=== PATIENT | female | born 1930 | race Caucasian/White ===

== ENCOUNTER → 2017-02-14 | Outpatient (CLI) | payer MEDICARE, BC ==
--- NOTE | 2017-02-14 16:45 | NM ---
EXAMINATION TYPE: NM bone scan whole body DATE OF EXAM: 02/14/2017 2:50 PM COMPARISON: NONE HISTORY: Breast cancer Delayed whole-body scanning was performed following the injection of 27.3 mCi Tc 99m MDP. Images wer e acquired 3.5 hours post injection. FINDINGS: Spot imaging is performed over the thorax and lower abdomen. No suspicious uptake is evident. Whole b kathy imaging is performed. No suspicious focal uptake to suggest metastasis. Some degenerative change may be in the bilateral feet IMPRESSION: 1. No suspicious uptake to suggest metastasis. 2. Degenerative changes bilateral feet tarsal regions
--- NOTE | 2017-02-14 17:43 | CT ---
EXAMINATION TYPE: CT ChestAbdPelvis wo con DATE OF EXAM: 02/14/2017 1:22 PM INDICATION: Patient has no complaints at time of study. Follow up study for known breast CA. COMPARISON: NONE CT DLP: 1286 mGycm CONTRAST: No IV contrast. Performed with Oral Contrast. TECHNIQUE: Axial images at 5 mm thick sections. Reconstructed images in the coronal plane. Delayed images through the kidneys. FINDINGS: CT CHEST: Portion of the thyroid visualized is normal. Bilateral breast prostheses are present. Coronary artery calcification is present. Bilateral apical thickening is present. This is stable from comparison. Small bilateral pleural effus ions are present. These may be minimally greater than prior study. No enlarged mediastinal or hilar adenopathy is evident. There is a 1.0 cm pretracheal lymph node mini bairon smaller than comparison. The ascending aorta diameter at the level of the main pulmonary artery is 3.3 cm. The main pulmonary artery diameter at the bifurcation is 2.[address] ABDOMEN: Ascites is present. Liver: Normal Spleen: Calcified granuloma within the spleen. Pancreas: Slightly atrophic. Adrenal glands: There is mild thickening of the left adrenal gland measuring 1.3 cm. This may be a ch yobany. Monitoring is recommended. The right adrenal gland appears normal. Gallbladder: Surgically absent Kidneys: No masses are evident. Some mild left hydronephrosis may be present. Hydroureter is not evid ent. No cysts are present. Aorta: Vascular calcification is within the aorta. Inferior vena cava: Normal. CT PELVIS: Small bowel loops are somewhat prominent with oral contrast. The contrast extends into the descending colon without obstruction. Diverticular changes are within the sigmoid colon. There are loops of bow el which are incompletely distended or lack oral contrast limiting their evaluation. Appendix: Normal as visualized. Urinary bladder: Normal. Genitourinary structures: Uterus appears normal. Adnexal regions are unremarkable. Osseous structures: There is extensive sclerosis throughout the osseous structures including the pelv is the vertebral spine right scapula. Scattered ribs. Sternum. Bilateral humeri Compatible with multi ple metastatic lesions. IMPRESSIONS: 1. Multiple osseous metastasis. 2. Small bilateral pleural effusions. 3. Ascites. 4. Mild prominence of the adrenal gland which may be a change from 08/31/2016. Monitoring is recommend ed. 5. Mild right hydronephrosis, similar appearance to 08/31/2016
== END | disposition home or self-care (01) ==
LOC: RADNMMAIN 10:25
PROVIDERS: ATTEND Internal Medicine Hematology & Oncology
DX: C50.919 Malignant neoplasm of unspecified site of unspecified female breast (principal); C79.51 Secondary malignant neoplasm of bone; Z88.5 Allergy status to narcotic agent; M19.072 Primary osteoarthritis, left ankle and foot; M19.071 Primary osteoarthritis, right ankle and foot; R18.8 Other ascites; J90 Pleural effusion, not elsewhere classified; N13.30 Unspecified hydronephrosis
CPT/HCPCS: 82565; 84520; 71250; 74176; 36415; 78306; A9503

== ENCOUNTER → 2017-03-04 | Outpatient (CLI) | payer MEDICARE, BC ==
--- NOTE | 2017-03-04 18:03 | XR ---
EXAMINATION TYPE: XR chest 2V DATE OF EXAM: 03/04/2017 COMPARISON: 04/05/2011 HISTORY: Difficulty breathing TECHNIQUE: Frontal and lateral views of the chest are obtained. FINDINGS: There is mild pulmonary vascular congestion. There is blunting of costophrenic angles with infiltrates at the lung bases. There is a right axillary pacemaker with the lead tips in the right v entricle. There are sclerotic changes in the thoracic spine. IMPRESSION: Compared to last exam there are new basilar pulmonary infiltrates with mild to moderate pleural effusions. Osteoblastic changes. Mild heart failure is probably present..
== END | disposition home or self-care (01) ==
LOC: RADXRMAIN 17:36
PROVIDERS: ATTEND Family Medicine
DX: J90 Pleural effusion, not elsewhere classified (principal); R91.8 Other nonspecific abnormal finding of lung field
CPT/HCPCS: 71020

== ENCOUNTER 2017-03-11 11:16 | Inpatient (IN) | payer MEDICARE, BC ==
[2017-03-11] MEDS ORDERED: IPRATROPIUM-ALBUTEROL 3 ML NEB INHALATION STA (12:13)
--- NOTE | 2017-03-11 12:17 | ED ---
General Adult HPI - General Chief complaint: Shortness of Breath Stated complaint: Dyspnea Time Seen by Provider: 03/11/17 12:02 Source: patient, RN notes reviewed Mode of arrival: ambulatory Limitations: no limitations - History of Present Illness Initial comments: Patient is a pleasant 86-year-old female presenting to the emergency department complaining of difficulty breathing. Symptoms have been somewhat present over several weeks however worse this past few days. Patient saw her doctor 4 days ago and was diagnosed with pneumonia. Patient feels symptoms are worsening since that time. Dyspnea increases with lying flat. No leg pain or leg swelling. Patient does have cough with clear sputum. No chest pain. No fever. Patient does have a history of bone cancer and is on medication for this. - Related Data Home Medications Medication Instructions Recorded Confirmed Atorvastatin [Lipitor] 20 mg PO HS 03/08/14 03/11/17 Esomeprazole Magnesium [NexIUM] 40 mg PO DAILY@1200 03/08/14 03/11/17 Lisinopril [Zestril] 20 mg PO BID 03/08/14 03/11/17 Metoprolol Tartrate [Lopressor] 100 mg PO BID 03/08/14 03/11/17 Calcium Carbonate [Calcium] 600 mg PO BID 03/11/17 03/11/17 Exemestane [Aromasin] 25 mg PO DAILY@1200 03/11/17 03/11/17 LORazepam [Ativan] 0.5 mg PO DAILY PRN 03/11/17 03/11/17 Levofloxacin [Levaquin] 500 mg PO DAILY 03/11/17 03/11/17 Omeprazole [PriLOSEC] 20 mg PO DAILY PRN 03/11/17 03/11/17 Warfarin [Coumadin] 2.5 mg PO MOTUTHFRSA 03/11/17 03/11/17 Warfarin [Coumadin] 3.25 mg PO SUWE 03/11/17 03/11/17 Xgeva Injection 120 mg SQ Q30D 03/11/17 03/11/17 amLODIPine BESYLATE [Norvasc] 10 mg PO HS 03/11/17 03/11/17 Allergies Allergy/AdvReac Type Severity Reaction Status Date / Time codeine AdvReac Nausea & Verified 03/11/17 11:24 Vomiting Review of Systems ROS Statement: Those systems with pertinent positive or pertinent negative responses have been documented in the HPI. ROS Other: All systems not noted in ROS Statement are negative. Constitutional: Denies: fever, chills Eyes: Denies: eye pain ENT: Denies: ear pain Respiratory: Reports: cough, dyspnea Cardiovascular: Denies: chest pain Endocrine: Reports: fatigue Gastrointestinal: Denies: abdominal pain Genitourinary: Denies: urgency Musculoskeletal: Denies: back pain Skin: Denies: rash Neurological: Denies: weakness Past Medical History Past Medical History: Cancer, GERD/Reflux, Hypertension Additional Past Medical History / Comment(s): bone cancer History of Any Multi-Drug Resistant Organisms: None Reported Past Surgical History: Breast Surgery, Cardiac Ablation, Cholecystectomy, Heart Catheterization, Orthopedic Surgery, Tubal Ligation Additional Past Surgical History / Comment(s): knee surg., bilateral mastectomy Past Anesthesia/Blood Transfusion Reactions: No Reported Reaction Type of Cardiac Device: Permanent Pacemaker Device Placement Date:: unknown Past Psychological History: No Psychological Hx Reported Smoking Status: Former smoker Past Alcohol Use History: None Reported Past Drug Use History: None Reported General Exam Limitations: no limitations General appearance: alert, in no apparent distress Head exam: Present: atraumatic Eye exam: Present: normal appearance, PERRL ENT exam: Present: normal oropharynx Neck exam: Present: normal inspection Respiratory exam: Present: normal lung sounds bilaterally, wheezes (With cough only) Cardiovascular Exam: Present: regular rate, normal rhythm GI/Abdominal exam: Present: soft. Absent: tenderness Extremities exam: Present: normal inspection. Absent: pedal edema, calf tenderness Neurological exam: Present: alert Psychiatric exam: Present: normal affect, normal mood Skin exam: Present: normal color Course Vital Signs 03/11/17 03/11/17 03/11/17 11:20 12:29 12:38 Temperature 97.3 F L Pulse Rate 68 72 76 Respiratory 18 Rate Blood Pressure 140/73 O2 Sat by Pulse 95 Oximetry 03/11/17 03/11/17 12:44 14:02 Temperature Pulse Rate 60 64 Respiratory 18 18 Rate Blood Pressure 109/60 132/63 O2 Sat by Pulse 97 97 Oximetry - Reevaluation(s) Reevaluation #1: 03/11/17 12:21 Patient states she no longer sees Dr. Evangelista. Patient does still see Dr. briceno EKG Findings - EKG Comments: EKG Findings:: Paced rhythm with PVCs. Rate 64. ID 188. QRS 162. QTC 484. QTC 499. Normal axis. Wide complex QRS. Nonspecific ST-T. Medical Decision Making - Medical Decision Making Patient reevaluated and resting comfortably in bed. Patient and family updated on results and plan. Case discussed with Dr. Davis who will consult for Dr. Aparicio and recommends medical admission. Patient no longer sees Dr. Evangelista and therefore Dr. villalpando was paged and he will admit. - Lab Data Result diagrams: 03/11/17 11:41 03/11/17 11:41 Lab Results 03/11/17 03/11/17 03/11/17 Range/Units 11:41 11:41 11:41 WBC 7.2 (3.8-10.6) k/uL RBC 3.79 L (3.80-5.40) m/uL Hgb 12.3 (11.4-16.0) gm/dL Hct 36.4 (34.0-46.0) % MCV 95.9 (80.0-100.0) fL MCH 32.5 (25.0-35.0) pg MCHC 33.9 (31.0-37.0) g/dL RDW 15.0 (11.5-15.5) % Plt Count 149 L (150-450) k/uL Neutrophils % 78 % Lymphocytes % 14 % Monocytes % 5 % Eosinophils % 1 % Basophils % 0 % Neutrophils # 5.6 (1.3-7.7) k/uL Lymphocytes # 1.0 (1.0-4.8) k/uL Monocytes # 0.4 (0-1.0) k/uL Eosinophils # 0.1 (0-0.7) k/uL Basophils # 0.0 (0-0.2) k/uL PT (9.0-12.0) sec INR (<1.1) APTT (22.0-30.0) sec Sodium 138 (137-145) mmol/L Potassium 4.4 (3.5-5.1) mmol/L Chloride 103 (98-107) mmol/L Carbon Dioxide 23 (22-30) mmol/L Anion Gap 12 mmol/L BUN 24 H (7-17) mg/dL Creatinine 1.60 H (0.52-1.04) mg/dL Est GFR (MDRD) Af Amer 37 (>60 ml/min/1.73 sqM) Est GFR (MDRD) Non-Af 31 (>60 ml/min/1.73 sqM) Glucose 100 H (74-99) mg/dL Calcium 9.4 (8.4-10.2) mg/dL Magnesium 2.0 (1.6-2.3) mg/dL Total Bilirubin 0.9 (0.2-1.3) mg/dL AST 53 H (14-36) U/L ALT 60 H (9-52) U/L Alkaline Phosphatase 151 H (38-126) U/L Total Creatine Kinase 41 (30-135) U/L CK-MB (CK-2) 0.6 (0.0-2.4) ng/mL CK-MB (CK-2) Rel Index 1.5 Troponin I 0.013 (0.000-0.034) ng/mL NT-Pro-B Natriuret Pep pg/mL Total Protein 6.6 (6.3-8.2) g/dL Albumin 3.6 (3.5-5.0) g/dL Urine Color Urine Appearance (Clear) Urine pH (5.0-8.0) Ur Specific [place] (1.001-1.035) Urine Protein (Negative) Urine Glucose (UA) (Negative) Urine Ketones (Negative) Urine Blood (Negative) Urine Nitrite (Negative) Urine Bilirubin (Negative) Urine Urobilinogen (<2.0) mg/dL Ur Leukocyte Esterase (Negative) Urine RBC (0-5) /hpf Urine WBC (0-5) /hpf Ur Squamous Epith Cells (0-4) /hpf Urine Mucus (None) /hpf 03/11/17 03/11/17 03/11/17 Range/Units 11:41 11:41 12:34 WBC (3.8-10.6) k/uL RBC (3.80-5.40) m/uL Hgb (11.4-16.0) gm/dL Hct (34.0-46.0) % MCV (80.0-100.0) fL MCH (25.0-35.0) pg MCHC (31.0-37.0) g/dL RDW (11.5-15.5) % Plt Count (150-450) k/uL Neutrophils % % Lymphocytes % % Monocytes % % Eosinophils % % Basophils % % Neutrophils # (1.3-7.7) k/uL Lymphocytes # (1.0-4.8) k/uL Monocytes # (0-1.0) k/uL Eosinophils # (0-0.7) k/uL Basophils # (0-0.2) k/uL PT 44.0 H (9.0-12.0) sec INR 4.5 (<1.1) APTT 31.9 H (22.0-30.0) sec Sodium (137-145) mmol/L Potassium (3.5-5.1) mmol/L Chloride (98-107) mmol/L Carbon Dioxide (22-30) mmol/L Anion Gap mmol/L BUN (7-17) mg/dL Creatinine (0.52-1.04) mg/dL Est GFR (MDRD) Af Amer (>60 ml/min/1.73 sqM) Est GFR (MDRD) Non-Af (>60 ml/min/1.73 sqM) Glucose (74-99) mg/dL Calcium (8.4-10.2) mg/dL Magnesium (1.6-2.3) mg/dL Total Bilirubin (0.2-1.3) mg/dL AST (14-36) U/L ALT (9-52) U/L Alkaline Phosphatase (38-126) U/L Total Creatine Kinase (30-135) U/L CK-MB (CK-2) (0.0-2.4) ng/mL CK-MB (CK-2) Rel Index Troponin I (0.000-0.034) ng/mL NT-Pro-B Natriuret Pep 2840 pg/mL Total Protein (6.3-8.2) g/dL Albumin (3.5-5.0) g/dL Urine Color Yellow Urine Appearance Clear (Clear) Urine pH 6.0 (5.0-8.0) Ur Specific [place] 1.010 (1.001-1.035) Urine Protein Negative (Negative) Urine Glucose (UA) Negative (Negative) Urine Ketones Negative (Negative) Urine Blood Negative (Negative) Urine Nitrite Negative (Negative) Urine Bilirubin Negative (Negative) Urine Urobilinogen <2.0 (<2.0) mg/dL Ur Leukocyte Esterase Small H (Negative) Urine RBC 1 (0-5) /hpf Urine WBC 5 (0-5) /hpf Ur Squamous Epith Cells 1 (0-4) /hpf Urine Mucus Rare H (None) /hpf - Radiology Data Radiology results: image reviewed (Chest x-ray does show bibasilar effusion.) Disposition Clinical Impression: Congestive heart failure Disposition: ADMITTED IP TO THIS HOSP Referrals: None,Stated [Primary Care Provider] - 1-2 days Decision Time: 15:16
[2017-03-11 12:28] LABS: Basophils % (A) 0 %; CH 32.9; CHCM 34.5; Eosinophils # (A) 0.1 k/uL (0-0.7); Eosinophils % (A) 1 %; HCT 36.4 % (34.0-46.0); HDW 2.61; HGB 12.3 gm/dL (11.4-16.0); Luc # (Auto) 0.09; Luc % (Auto) 1; Lymphocytes % (A) 14 %; MCH 32.5 pg (25.0-35.0); MCHC 33.9 g/dL (31.0-37.0); MCV 95.9 fL (80.0-100.0); Mean Platelet Volume 6.7; Monocytes # (A) 0.4 k/uL (0-1.0); Monocytes % (A) 5 %; Neutrophils # (A) 5.6 k/uL (1.3-7.7); Neutrophils % (A) 78 %; RBC 3.79 m/uL (3.80-5.40); WBC 7.2 k/uL (3.8-10.6); WBC (Perox) 7.34
[2017-03-11 12:34] LABS: INR 4.5 (<1.1); Partial Thromboplastin Time 31.9 sec (22.0-30.0)
[2017-03-11 12:38] LABS: Calcium 9.4 mg/dL (8.4-10.2); Total Bilirubin 0.9 mg/dL (0.2-1.3); Total Protein 6.6 g/dL (6.3-8.2)
[2017-03-11 12:40] LABS: Appearance,Urine Clear (Clear); Bilirubin,Urine Negative (Negative); Glucose,Urine (UA) Negative (Negative); Ketones,Urine Negative (Negative); Leukocyte Esterase,Urine Small (Negative); Mucus,Urine Rare /hpf; Nitrite,Urine Negative (Negative); Particle Count 2294; Protein,Urine Negative (Negative); RBC,Urine 1 /hpf (0-5); Squamous Epithelial Cell,Urine 1 /hpf (0-4); UA Billing (MACRO vs. MICRO) MICRO; Urobilinogen,Urine <2.0 mg/dL (<2.0); WBC,Urine 5 /hpf (0-5)
[2017-03-11 12:41] LABS: Potassium 4.4 mmol/L (3.5-5.1)
[2017-03-11 12:57] LABS: Creatine Kinase MB 0.6 ng/mL (0.0-2.4); Troponin I 0.013 ng/mL (0.000-0.034)
--- NOTE | 2017-03-11 13:12 | XR ---
EXAMINATION TYPE: XR chest 2V DATE OF EXAM: 03/11/2017 COMPARISON: 03/04/2017 TECHNIQUE: PA and lateral views submitted. HISTORY: Shortness of breath FINDINGS: Cardiac device is seen with previous surgery. Bilateral infiltrate and pleural effusion. No pneumotho rax. Apical pleural thickening seen. Heterogeneous pattern to the osseous structures could been the basis of diffuse bony metastases. Hype rtrophic change of the spine noted. Correlate for COPD. Arthropathy of the shoulders. IMPRESSION: 1. Persistent small bilateral effusion and infiltrate. Differential diagnosis would include pneumonia or venous congestion. 2. Pleural-based nodularity in the left upper lobe stable. 3. Correlate for bony metastases.
[2017-03-11] MEDS ORDERED: ASPIRIN 325 MG TAB PO STA (15:16)
[2017-03-11] MEDS ORDERED: IPRATROPIUM-ALBUTEROL 3 ML NEB INHALATION PRN (15:19)
[2017-03-11] MEDS ORDERED: FUROSEMIDE 10 MG/ML 4 ML VIAL IV ONE (15:30)
[2017-03-11] MEDS ORDERED: SODIUM CHLORIDE 0.9% 1,000 ML IV SCH (15:30)
[2017-03-11] MEDS ORDERED: NON-FORMULARY DRUG (Omeprazole 20 MG) PO PRN (16:27)
[2017-03-11] MEDS ORDERED: LORazepam 0.5 MG TAB PO PRN (16:27)
[2017-03-11] MEDS: NITROGLYCERIN OINT 1 INCH/GM PACKET TOPICAL SCH ×2 (17:06→21:51)
--- NOTE | 2017-03-11 18:03 | P.CONS ---
History of Present Illness - Reason for Consult Consult date: 03/11/17 Metastatic breast cancer. Progressive shortness of breath - History of Present Illness The patient is an 86-year-old lady, with a prior history of right-sided breast cancer in 1999, as well as left-sided breast cancer in 2002. The patient subsequently developed metastatic disease with widespread bone involvement. She is currently on Aromasin. She had been complaining of shortness of breath since about 3 months. However she did not initially seek attention and she was busy with her ' s health problems. Her unfortunately . The patient's breathing continued to get worse. She denied any chest pain or associated significant cough. She had a CT of the chest abdomen pelvis on 02/14/17 as well as a bone scan. This showed the multiple bone metastasis, which were at baseline. The chest study showed minimal pleural thickening at the apices, and small bilateral pleural effusions with no significant adenopathy or other parenchymal disease. Due to progression of symptoms, the patient had a chest x-ray on 03/04/2017, showing somewhat similar findings with additionally some bilateral parenchymal infiltrates. The patient was placed on antibiotics, without improvement. She therefore came into the emergency room today where chest x-ray appeared to show slight progression in the bilateral parenchymal changes and the pleural effusions. BNP was elevated. She was therefore admitted for further management. Review of Systems Constitutional: Reports weakness Eyes: denies blurred vision, denies pain Ears: deny: decreased hearing, ear discharge, earache, tinnitus Ears, nose, mouth and throat: Denies headache, Denies sore throat Cardiovascular: Reports irregular heart beat, Reports orthopnea, Reports shortness of breath Respiratory: Reports dyspnea Gastrointestinal: Denies abdominal pain, Denies diarrhea, Denies nausea, Denies vomiting Genitourinary: Denies dysuria, Denies hematuria Menstruation: Reports postmenopausal Musculoskeletal: Reports muscle weakness Integumentary: Denies pruritus, Denies rash Neurological: Reports weakness Psychiatric: Denies anxiety, Denies depression Endocrine: Denies fatigue, Denies weight change Hematologic/Lymphatic: Reports as per HPI Past Medical History Past Medical History: Atrial Fibrillation, Cancer, GERD/Reflux, Hyperlipidemia, Hypertension, Osteoarthritis (OA), Pneumonia Additional Past Medical History / Comment(s): bone cancer, SINUS, HEMORRHOIDS, PNE X5, MULTIPLE BASAL CELL SKIN CANCER LESIONS REMOVED."DOUBLE VISION SINCE CATARACT SX", STRESS INCONT OF URINE.past fx lt wrist. History of Any Multi-Drug Resistant Organisms: None Reported Past Surgical History: Breast Surgery, Cardiac Ablation, Cholecystectomy, Heart Catheterization, Orthopedic Surgery, Tubal Ligation Additional Past Surgical History / Comment(s): RT knee arthroscopy., bilateral mastectomy, skin ca removed, d&c, lt wrist sx d/t fx-stated no metal in palce Past Anesthesia/Blood Transfusion Reactions: No Reported Reaction Type of Cardiac Device: Permanent Pacemaker Device Placement Date:: unknown Smoking Status: Former smoker - Past Family History Mother Family Medical History: Diabetes Mellitus, Myocardial Infarction ([place]) Father Family Medical History: AFIB, Cancer, Prostate Disorder Additional Family Medical History / Comment(s): prostate cancer Medications and Allergies Home Medications Medication Instructions Recorded Confirmed Type Atorvastatin [Lipitor] 20 mg PO HS 03/08/14 03/11/17 History Esomeprazole Magnesium [NexIUM] 40 mg PO DAILY@1200 03/08/14 03/11/17 History Lisinopril [Zestril] 20 mg PO BID 03/08/14 03/11/17 History Metoprolol Tartrate [Lopressor] 100 mg PO BID 03/08/14 03/11/17 History Calcium Carbonate [Calcium] 600 mg PO BID 03/11/17 03/11/17 History Exemestane [Aromasin] 25 mg PO DAILY@1200 03/11/17 03/11/17 History LORazepam [Ativan] 0.5 mg PO DAILY PRN 03/11/17 03/11/17 History Levofloxacin [Levaquin] 500 mg PO DAILY 03/11/17 03/11/17 History Omeprazole [PriLOSEC] 20 mg PO DAILY PRN 03/11/17 03/11/17 History Warfarin [Coumadin] 2.5 mg PO MOTUTHFRSA 03/11/17 03/11/17 History Warfarin [Coumadin] 3.25 mg PO SUWE 03/11/17 03/11/17 History Xgeva Injection 120 mg SQ Q30D 03/11/17 03/11/17 History amLODIPine BESYLATE [Norvasc] 10 mg PO HS 03/11/17 03/11/17 History Allergies Allergy/AdvReac Type Severity Reaction Status Date / Time codeine AdvReac Nausea & Verified 03/11/17 11:24 Vomiting Physical Exam Vitals: Vital Signs Temp Pulse Pulse Resp BP BP Pulse Ox 03/11/17 16:08 97 F L 60 20 127/61 98 03/11/17 15:35 96.9 F L 59 L 18 120/64 97 03/11/17 14:02 64 18 132/63 97 03/11/17 12:44 60 18 109/60 97 03/11/17 12:38 76 03/11/17 12:29 72 03/11/17 11:20 97.3 F L 68 18 140/73 95 Intake and Output 03/11/17 03/11/17 03/11/17 06:59 14:59 22:59 Other: Weight 61.235 kg Patient Weight 03/12/17 06:59 Weight 61.235 kg - Constitutional General appearance: no acute distress - EENT Eyes: EOMI, PERRLA ENT: hearing grossly normal, normal oropharynx - Neck Neck: no lymphadenopathy Thyroid: bilateral: normal size - Respiratory Respiratory: bilateral: CTA - Cardiovascular Rhythm: regular Heart sounds: normal: S1, S2 - Gastrointestinal General gastrointestinal: normal bowel sounds, soft - Integumentary Integumentary: normal - Neurologic Neurologic: CNII-XII intact - Musculoskeletal Musculoskeletal: generalized weakness, strength equal bilaterally - Psychiatric Psychiatric: A&O x's 3, appropriate affect Results CBC & Chem 7: 03/11/17 11:41 03/11/17 11:41 Labs: Abnormal Lab Results - Last 24 Hours (Table) 03/11/17 03/11/17 03/11/17 Range/Units 11:41 11:41 11:41 RBC 3.79 L (3.80-5.40) m/uL Plt Count 149 L (150-450) k/uL PT 44.0 H (9.0-12.0) sec APTT 31.9 H (22.0-30.0) sec BUN 24 H (7-17) mg/dL Creatinine 1.60 H (0.52-1.04) mg/dL Glucose 100 H (74-99) mg/dL AST 53 H (14-36) U/L ALT 60 H (9-52) U/L Alkaline Phosphatase 151 H (38-126) U/L Ur Leukocyte Esterase (Negative) Urine Mucus (None) /hpf 03/11/17 Range/Units 12:34 RBC (3.80-5.40) m/uL Plt Count (150-450) k/uL PT (9.0-12.0) sec APTT (22.0-30.0) sec BUN (7-17) mg/dL Creatinine (0.52-1.04) mg/dL Glucose (74-99) mg/dL AST (14-36) U/L ALT (9-52) U/L Alkaline Phosphatase (38-126) U/L Ur Leukocyte Esterase Small H (Negative) Urine Mucus Rare H (None) /hpf Chest x-ray: report reviewed CT scan - abdomen: report reviewed CT scan - chest: report reviewed CT scan - pelvis: report reviewed Assessment and Plan (1) Congestive heart failure Narrative/Plan: At this time is felt to be a primary differential diagnosis of her chest x- ray findings, and progressive shortness of breath. The patient has known atrial fibrillation, but denies any history of coronary artery disease. She does follow with Dr. Reno Davies. She apparently had a recent echocardiogram but is unaware of the results. I'll defer to the admitting service and cardiology for management this regard. Status: Acute (2) Metastatic breast cancer Narrative/Plan: The patient has known breast cancer with widespread bone metastasis. She had restaging studies done on 02/14/2017 including computed tomography scan of the chest abdomen and pelvis, as well as bone scan. As noted in the HPI, these showed no evidence of progression. Therefore progression of the cancer as a cause of her radiologic and symptom abnormalities appears to be much less likely. - Continue Aromasin - Check tumor markers Status: Acute
[2017-03-11 19:46] LABS: Creatine Kinase MB 0.6 ng/mL (0.0-2.4); Troponin I <0.012 ng/mL (0.000-0.034)
[2017-03-11] MEDS: CALCIUM CARBONATE 500 MG CHEWABLE PO SCH (20:11)
[2017-03-11] MEDS: METOPROLOL TARTRATE 50 MG TAB PO SCH (20:11)
[2017-03-11] MEDS: LISINOPRIL 20 MG TAB PO SCH (20:11)
[2017-03-11] MEDS: ATORVASTATIN 20 MG TAB PO SCH (20:11)
[2017-03-11] MEDS ORDERED: amLODIPine 10 MG TAB PO SCH (21:00)
[2017-03-11] MEDS: FUROSEMIDE 10 MG/ML 4 ML VIAL IV SCH (23:02)
[2017-03-12 02:05] LABS: Creatine Kinase MB 0.6 ng/mL (0.0-2.4); Troponin I <0.012 ng/mL (0.000-0.034)
[2017-03-12 06:34] LABS: Prothrombin Time 53.7 sec (9.0-12.0)
[2017-03-12 06:44] LABS: INR 5.4 (<1.1)
[2017-03-12] MEDS ORDERED: PHYTONADIONE ORAL 5 MG/5 ML ORAL.SYRG PO STA (07:16)
[2017-03-12] MEDS ORDERED: ASPIRIN 325 MG TAB PO SCH (09:00)
[2017-03-12] MEDS: NITROGLYCERIN OINT 1 INCH/GM PACKET TOPICAL SCH (09:02)
[2017-03-12] MEDS: METOPROLOL TARTRATE 50 MG TAB PO SCH ×2 (09:02→20:22)
[2017-03-12] MEDS: CALCIUM CARBONATE 500 MG CHEWABLE PO SCH ×2 (09:02→19:47)
[2017-03-12] MEDS: FUROSEMIDE 10 MG/ML 4 ML VIAL IV SCH ×2 (09:03→20:22)
[2017-03-12] MEDS: LISINOPRIL 20 MG TAB PO SCH ×2 (09:03→20:21)
--- NOTE | 2017-03-12 11:30 | P.CRDCN ---
History of Present Illness Consult date: 03/12/17 Reason for Consult (text): CHF Chief complaint: progressively worsening shortness of breath History of present illness: This is a pleasant 86-year-old male patient who follows regularly with Dr. TRISHA Davies in the office. She has a known history of atrial fibrillation, status post failed ablation with subsequent AV node ablation and dual-chamber pacemaker implantation. Also has a history of hypertension, bone cancer and dyslipidemia. Has been complaining of progressively worsening shortness of breath with activity and orthopnea over the last several months. He underwent 2 -D echo with Doppler in the office that showed normal LV size and systolic function with an ejection fraction of 55%, mild aortic regurgitation, moderate mitral regurgitation, large left and moderate right sided pleural effusion as well as laterally increased PASP at 47 mmHg. Report was sent to her primary care physician for further evaluation of pleural effusions. She has also been seen by her oncologist and treated for pneumonia no improvement of symptoms. Chest x-ray on admission showed persistent small bilateral effusion and infiltrate on the differential diagnosis would include pneumonia or venous congestion. A G show dual paced rhythm with occasional PVC. Laboratory values show normal white blood cell count, BUN 24, creatinine 1.6, BNP 2840 and elevated INR at 5.4, elevated liver function tests. She is initiated on Lasix 40 mg IV push every 8 hours as well as Nitropaste. Upon examination, patient is resting comfortably in bed. She can be related to the bathroom without difficulties however became quite dizzy all in the bathroom upon return to her bed his anus improved and systolic blood pressure was at 100 mmHg. she says she is breathing quite a bit better. She had been sleeping in a recliner at home, able to rest comfortably in bed with head up at about 30 currently. She has no complaints of chest discomfort, palpitations, syncope or edema. Past Medical History Past Medical History: Atrial Fibrillation, Cancer, GERD/Reflux, Hyperlipidemia, Hypertension, Osteoarthritis (OA), Pneumonia Additional Past Medical History / Comment(s): bone cancer, SINUS, HEMORRHOIDS, PNE X5, MULTIPLE BASAL CELL SKIN CANCER LESIONS REMOVED."DOUBLE VISION SINCE CATARACT SX", STRESS INCONT OF URINE.past fx lt wrist. History of Any Multi-Drug Resistant Organisms: None Reported Past Surgical History: Breast Surgery, Cardiac Ablation, Cholecystectomy, Heart Catheterization, Orthopedic Surgery, Tubal Ligation Additional Past Surgical History / Comment(s): RT knee arthroscopy., bilateral mastectomy, skin ca removed, d&c, lt wrist sx d/t fx-stated no metal in palce Past Anesthesia/Blood Transfusion Reactions: No Reported Reaction Type of Cardiac Device: Permanent Pacemaker Device Placement Date:: unknown Smoking Status: Former smoker - Past Family History Mother Family Medical History: Diabetes Mellitus, Myocardial Infarction ([place]) Father Family Medical History: AFIB, Cancer, Prostate Disorder Additional Family Medical History / Comment(s): prostate cancer Medications and Allergies Home Medications Medication Instructions Recorded Confirmed Type Atorvastatin [Lipitor] 20 mg PO HS 03/08/14 03/11/17 History Esomeprazole Magnesium [NexIUM] 40 mg PO DAILY@1200 03/08/14 03/11/17 History Lisinopril [Zestril] 20 mg PO BID 03/08/14 03/11/17 History Metoprolol Tartrate [Lopressor] 100 mg PO BID 03/08/14 03/11/17 History Calcium Carbonate [Calcium] 600 mg PO BID 03/11/17 03/11/17 History Exemestane [Aromasin] 25 mg PO DAILY@1200 03/11/17 03/11/17 History LORazepam [Ativan] 0.5 mg PO DAILY PRN 03/11/17 03/11/17 History Levofloxacin [Levaquin] 500 mg PO DAILY 03/11/17 03/11/17 History Omeprazole [PriLOSEC] 20 mg PO DAILY PRN 03/11/17 03/11/17 History Warfarin [Coumadin] 2.5 mg PO MOTUTHFRSA 03/11/17 03/11/17 History Warfarin [Coumadin] 3.25 mg PO SUWE 03/11/17 03/11/17 History Xgeva Injection 120 mg SQ Q30D 03/11/17 03/11/17 History amLODIPine BESYLATE [Norvasc] 10 mg PO HS 03/11/17 03/11/17 History Allergies Allergy/AdvReac Type Severity Reaction Status Date / Time codeine AdvReac Nausea & Verified 03/11/17 11:24 Vomiting Physical Exam Vitals: Vital Signs Temp Pulse Pulse Resp BP BP Pulse Ox 03/12/17 08:00 60 18 128/58 95 03/12/17 04:00 61 18 121/60 91 L 03/12/17 00:00 61 16 115/57 95 03/11/17 20:00 97.6 F 57 L 16 131/63 93 L 03/11/17 16:08 97 F L 60 20 127/61 98 03/11/17 15:35 96.9 F L 59 L 18 120/64 97 03/11/17 14:02 64 18 132/63 97 03/11/17 12:44 60 18 109/60 97 03/11/17 12:38 76 03/11/17 12:29 72 03/11/17 11:20 97.3 F L 68 18 140/73 95 Intake and Output 03/11/17 03/12/17 03/12/17 22:59 06:59 14:59 Intake Total 118 60 120 Output Total 250 Balance -132 60 120 Intake: IV 60 Sodium Chloride 0.9% 1, 60 000 ml @ 20 mls/hr IV . Q24H [facility] Rx#:[id number] Oral 118 120 Output: Urine 250 Other: Voiding Method Bedside Commode Toilet Toilet Bedside Commode Bedside Commode # Voids 1 # Bowel Movements 1 Weight 62.7 kg PHYSICAL EXAMINATION: HEENT: Head is atraumatic, normocephalic. Pupils equal, round. Neck is supple. There is no elevated jugular venous pressure. HEART EXAMINATION: Heart sounds regular, S1 and S2 with a systolic murmur. CHEST EXAMINATION: Lungs are clear to auscultation and precussion. No chest wall tenderness is noted on palpation or with deep breathing. ABDOMEN: Soft, nontender. Bowel sounds are heard. No organomegaly noted. EXTREMITIES: 2+ peripheral pulses with no evidence of peripheral edema and no calf tenderness noted. NEUROLOGIC patient is awake, alert and oriented x3. . Results 03/11/17 11:41 03/11/17 11:41 Cardiac Enzymes 03/11/17 03/11/17 03/11/17 Range/Units 11:41 11:41 18:43 AST 53 H (14-36) U/L CK-MB (CK-2) 0.6 0.6 (0.0-2.4) ng/mL Troponin I 0.013 <0.012 (0.000-0.034) ng/mL 03/12/17 Range/Units 00:53 AST (14-36) U/L CK-MB (CK-2) 0.6 (0.0-2.4) ng/mL Troponin I <0.012 (0.000-0.034) ng/mL Coagulation 03/11/17 03/12/17 Range/Units 11:41 05:45 PT 44.0 H 53.7 H (9.0-12.0) sec APTT 31.9 H (22.0-30.0) sec CBC 03/11/17 Range/Units 11:41 WBC 7.2 (3.8-10.6) k/uL RBC 3.79 L (3.80-5.40) m/uL Hgb 12.3 (11.4-16.0) gm/dL Hct 36.4 (34.0-46.0) % Plt Count 149 L (150-450) k/uL Comprehensive Metabolic Panel 03/11/17 Range/Units 11:41 Sodium 138 (137-145) mmol/L Potassium 4.4 (3.5-5.1) mmol/L Chloride 103 (98-107) mmol/L Carbon Dioxide 23 (22-30) mmol/L BUN 24 H (7-17) mg/dL Creatinine 1.60 H (0.52-1.04) mg/dL Glucose 100 H (74-99) mg/dL Calcium 9.4 (8.4-10.2) mg/dL AST 53 H (14-36) U/L ALT 60 H (9-52) U/L Alkaline Phosphatase 151 H (38-126) U/L Total Protein 6.6 (6.3-8.2) g/dL Albumin 3.6 (3.5-5.0) g/dL Current Medications Generic Name Dose Route Start Last Admin Trade Name Freq PRN Reason Stop Dose Admin Albuterol/Ipratropium 3 ml 03/11/17 15:19 Duoneb 0.5 Mg-3 Mg/3 Ml Soln INHALATION RT-QID PRN Shortness Of Breath Or Wheezing Amlodipine Besylate 10 mg 03/11/17 21:00 03/11/17 20:11 Norvasc PO 10 mg HS [facility] Administration Atorvastatin Calcium 20 mg 03/11/17 21:00 03/11/17 20:11 Lipitor PO 20 mg HS [facility] Administration Calcium Carbonate/Glycine 500 mg 03/11/17 21:00 03/12/17 09:02 Tums PO Not Given BID [facility] Furosemide 40 mg 03/12/17 00:00 03/12/17 09:03 Lasix IV 40 mg Q8HR [facility] Administration Sodium Chloride 1,000 mls @ 20 mls/hr 03/11/17 15:30 03/11/17 15:29 Saline 0.9% IV 20 mls/hr .Q24H [facility] Administration Lisinopril 20 mg 03/11/17 21:00 03/12/17 09:03 Zestril PO 20 mg BID [facility] Administration Lorazepam 0.5 mg 03/11/17 16:27 Ativan PO DAILY PRN Anxiety Metoprolol Tartrate 100 mg 03/11/17 21:00 03/12/17 09:02 Lopressor PO 100 mg BID [facility] Administration Nitroglycerin 1 inch 03/11/17 18:00 03/12/17 09:02 Nitro-Bid Oint TOPICAL 1 inch QID [facility] Administration Non-Formulary Medication 25 mg 03/12/17 12:00 Exemestane [Aromasin] PO DAILY@1200 [facility] Pantoprazole Sodium 40 mg 03/12/17 12:00 Protonix PO DAILY@1200 [facility] Intake and Output 03/11/17 03/12/17 03/12/17 22:59 06:59 14:59 Intake Total 118 60 120 Output Total 250 Balance -132 60 120 Intake: IV 60 Sodium Chloride 0.9% 1, 60 000 ml @ 20 mls/hr IV . Q24H [facility] Rx#:[id number] Oral 118 120 Output: Urine 250 Other: Voiding Method Bedside Commode Toilet Toilet Bedside Commode Bedside Commode # Voids 1 # Bowel Movements 1 Weight 62.7 kg 03/11/17 11:41 03/11/17 11:41 Assessment and Plan Plan: Assessment and plan #1 symptoms of progressively worsening shortness of breath and orthopnea, BNP 2840 #2 acute on chronic diastolic heart failure, ejection fraction 55% #3 paroxysmal atrial fibrillation, status post AV node ablation and dual- chamber pacemaker implantation, supratherapeuatic INR #4 moderate mitral regurgitation #5 pulmonary hypertension #6 Breast CA with bone mets #7 hypertension with orthostatic hypotension #8 hyperlipidemia From core stacker perspective, we will stop Nitropaste and aspirin. Continue to hold Coumadin and monitor INR. Decrease lasix to 40mg IVP Q12H and monitor renal function. Decrease amlodipine. Further recommendations to follow. OSTOMY CARE NURSE note has been reviewed, I agree with a documented findings and plan of care. Patient was seen and examined.
--- NOTE | 2017-03-12 11:38 | P.PN ---
Progress Note - Text This is an addendum to the dictated cardiology consultation. The patient has a known history of atrial fibrillation, status post ablation and AV shaka ablation with permanent pacemaker implantation who presented was 4 weeks of progressive fatigue, shortness of breath lack of energy. She has been under a lot of stress because of the illness of her who . She did not note any significant peripheral edema but she has a cough, no chest discomfort. She felt dizzy today when she got up. She had an echocardiogram done recently that showed a normal systolic function with evidence of pleural effusion that was documented on her chest x-ray. On her physical examination she has mild decrease in the breath sounds at the bases, no JVD and no peripheral edema. The patient presents with progressive dyspnea on exertion with an element of CHF , but I am concerned about the etiology of her pleural effusion. We will continue intravenous diuresis for another 24 hours. We'll follow her renal function closely and depending on her progress further recommendations to be made. Thank you for this consult we will follow with you.
[2017-03-12] MEDS ORDERED: EXEMESTANE 25 MG PO SCH (12:00)
[2017-03-12 12:27] VITALS: BMI 22.3
[2017-03-12] MEDS: PANTOPRAZOLE 40 MG TABLET PO SCH (15:56)
--- NOTE | 2017-03-12 19:36 | HP ---
DATE OF ADMISSION: 03/11/2017 PRESENTING COMPLAINT: Short of breath. HISTORY OF PRESENTING COMPLAINT: This is a very pleasant 86-year-old patient who was following with Dr. Fei Evangelista, wishes to change to family doctor, now being followed by Dr. Thorne. History of bilateral breast cancer with bony metastasis. Chronic stable medical conditions include atrial fibrillation, GERD, hyperlipidemia, hypertension, osteoarthritis, hemorrhoids. The patient over 3 months is getting progressively increasing shortness of breath, has a cough, mucousy sputum. No fever. Decreased appetite, tired and rundown, now admitted for the same. Denies any chest pain. REVIEW OF SYSTEMS: CONSTITUTIONAL: Weak, tired. HEENT: None. RESPIRATORY: As above. CARDIOVASCULAR: As above. GASTROINTESTINAL: GERD. GENITOURINARY: None. MUSCULOSKELETAL: Aches and pains in different joints. DERMATOLOGICAL: None. HEMATOLOGIC: None. LYMPHATICS: None. PSYCHIATRY: None. NEUROLOGICAL: None. PAST HISTORY: Atrial fibrillation, GERD, hyperlipidemia, hypertension, osteoarthritis, hemorrhoids, basal cell carcinoma, urinary stress incontinence, bilateral breast cancer with metastasis to the bone. PAST SURGICAL HISTORY: Breast surgery, cardiac ablation, cholecystectomy, cardiac catheterization, ( ), bilateral mastectomies, skin cancer removed, permanent pacemaker. SOCIAL HISTORY: Patient lost her 2 weeks ago. Patient smoked a pack a day for 34 years; stopped in 1983. FAMILY HISTORY: Diabetes, myocardial infarction, prostate cancer. HOME MEDICATIONS: 1. Aromasin 25 mg p.o. daily. 2. Coumadin 3.25 on Tuesday, Tuesday and 2.5 mg on Tuesday, Tuesday, , Tuesday, Tuesday. 3. Norvasc 10 mg q.h.s. 4. Xgeva 120 mg subcu every 30 days. 5. Prilosec 20 mg p.o. daily p.r.n. 6. Lopressor 100 mg p.o. b.i.d. 7. Zestril 20 mg p.o. b.i.d. 8. Levaquin 500 mg p.o. daily. 9. Ativan 0.5 p.o. daily p.r.n. 10. Nexium 40 mg p.o. daily at noon. 11. Calcium 600 mg p.o. b.i.d. 12. Lipitor 20 mg p.o. q.h.s. ALLERGIES: CODEINE: NAUSEA, VOMITING. On examination temperature 97.3, pulse 68, respirations 18, blood pressure 140/73, pulse ox 95% on room air. GENERAL APPEARANCE: Elderly, lying in bed, tired-appearing. EYES: Pupils equal. Conjunctivae normal. HEENT: Oral cavity normal. NECK: JVD possibly raised. Mass not palpable. RESPIRATORY: Effort increased. LUNGS: Diminished breath sounds. CARDIOVASCULAR: First and second sounds normal. No edema. ABDOMEN: Soft, nontender. Liver and spleen not palpable. LYMPHATIC: No lymph node palpable in neck or axillae. PSYCHIATRIC: Alert and oriented x3. Mood and affect normal. NEUROLOGICAL: Pupils equal. Cranial nerves grossly intact. Power and sensation grossly intact. MUSCULOSKELETAL: Evidence of osteoarthritis of multiple joints. INVESTIGATIONS: White count 7.2, hemoglobin 12.3, INR 4.5. Repeat showed 5.4. BUN 24, creatinine 1.6. CA 15-3 antigen 146. Chest x-ray: Small bilateral pleural effusion. Also, ProBNP is 2840. ASSESSMENT: 1. Acute chronic obstructive pulmonary disease exacerbation in an ex-smoker. 2. Possibly acute on chronic congestive heart failure from diastolic dysfunction. 3. History of atrial fibrillation, status post atrioventricular shaka ablation with a permanent pacemaker, implantation. 4. Gastroesophageal reflux disease. 5. Hyperlipidemia. 6. Essential hypertension. 7. Primary osteoarthritis of multiple joints. 8. Chronic urinary stress incontinence. 9. Bilateral breast cancer leading to bone metastasis being followed by Dr. Thorne. PLAN: The patient is put on nebulized bronchodilators, IV Lasix. Cardiology consulted. Home medications are resumed. Care was discussed with the patient. Both Cardiology and Oncology were consulted.
[2017-03-12] MEDS: ATORVASTATIN 20 MG TAB PO SCH (20:22)
[2017-03-12] MEDS: amLODIPine 5 MG TAB PO SCH (20:24)
[2017-03-12] MEDS: IPRATROPIUM-ALBUTEROL 3 ML NEB INHALATION SCH (20:46)
[2017-03-13 06:53] LABS: Prothrombin Time 19.1 sec (9.0-12.0)
[2017-03-13 07:06] LABS: Potassium 3.4 mmol/L (3.5-5.1)
[2017-03-13] MEDS: CALCIUM CARBONATE 500 MG CHEWABLE PO SCH ×2 (08:29→22:34)
[2017-03-13] MEDS: FUROSEMIDE 10 MG/ML 4 ML VIAL IV SCH (08:29)
[2017-03-13] MEDS: METOPROLOL TARTRATE 50 MG TAB PO SCH ×2 (08:29→22:34)
[2017-03-13] MEDS: LISINOPRIL 20 MG TAB PO SCH ×2 (08:29→22:34)
[2017-03-13] MEDS: IPRATROPIUM-ALBUTEROL 3 ML NEB INHALATION SCH ×4 (08:43→19:32)
[2017-03-13] MEDS: PANTOPRAZOLE 40 MG TABLET PO SCH (15:06)
--- NOTE | 2017-03-13 16:54 | P.PN ---
Progress Note - Text DATE OF SERVICE: 03/13/2017 PRESENTING COMPLAINT: Shortness of breath INTERVAL HISTORY: This is an 86-year-old female who presented with COPD exacerbation. Patient sitting in the bed, no distress noted, breathing easier. Tolerating her diet, moving about the room, moved her bowels. Patient has a history of breast cancer , Dr. Davis to follow as her and saw her today. Discussion had with patient about plan of care, she is agreeable. All questions answered. REVIEW OF SYSTEMS: Done for constitutional ,cardiovascular, GI, pulmonary with relevant findings as above. CURRENT MEDICATIONS Norvasc, Lipitor, Lasix, Zestril, Ativan, Lopressor, Protonix, Coumadin. PHYSICAL EXAM VITAL SIGNS: Temperature 97.8, pulse 62 respirations 16 blood pressure 111/59 oxygen saturation 96% on room air GENERAL APPEARANCE:. Lying in bed, not in distress. EYES: Pupils equal. Conjunctiva normal. NECK: JVD not raised. Mass not palpable. RESPIRATORY: Respiratory effort normal. Lungs diminished throughout . CARDIOVASCULAR: First and second sounds normal. No edema. ABDOMEN: Soft. Liver and spleen not palpable. No tenderness. No mass palpable. PSYCHIATRY: Alert and oriented x3. Mood and affect normal. INVESTIGATIONS: INR 2.0, sodium 137, potassium 3.4, BUN 31 and creatinine 193, ASSESSMENT: Acute chronic obstructive pulmonary disease exacerbation in an ex-smoker. Possibly acute on chronic congestive heart failure from diastolic dysfunction. History of atrial fibrillation, status post atrioventricular shaka ablation with permanent pacemaker, implantation. Gastroesophageal reflux disease. Hyperlipidemia. Essential hypertension. Primary osteoarthritis multiple joints. Chronic urinary stress incontinence. Bilateral breast cancer leading to bone metastases followed by Dr. Varma. Coumadin monitoring PLAN: Continue current medication and treatment plan. Discharge planning the next day or 2. We'll follow closely HUMANITIES DEPARTMENT CHAIR statement: Patient was seen and examined by nurse practitioner Leslie Neri and all elements of the case discussed with attending Dr. Haynes
--- NOTE | 2017-03-13 17:32 | PN ---
Mrs. Ponce is an 86-year-old female who presented with symptoms of progressive dyspnea. She is feeling better today. Her breathing is better. She denies any chest pain. She denies any dizziness, palpitation. She denies any nausea. She continues to be at this time on amlodipine 5 mg daily, Lipitor 20 mg daily, Lasix 40 mg IV q.12 hours, lisinopril 20 mg twice a metoprolol tartrate 100 mg twice a day. PHYSICAL EXAMINATION: Blood pressure 111/59 with a heart in the 60s. LUNGS: Mild decrease in breath sounds at the bases. HEART: S1, S2, no S3, with systolic murmur. ABDOMEN: Soft, nontender. EXTREMITIES: No edema. IMPRESSION: 1. Symptoms of progressive dyspnea with a combination of probable chronic obstructive pulmonary disease and diastolic dysfunction heart failure. 2. Status post permanent pacemaker implantation for atrial fibrillation, status post AV shaka ablation. 3. History of breast cancer with bone metastasis. 4. Hyperlipidemia. 5. Hypertension. RECOMMENDATIONS: I will switch her to oral diuretics. Will continue on the Coumadin. Her INR today is 2.0. Her BUN and creatinine are higher than yesterday. Will follow her weight and depending on her progress, further recommendations will be made.
[2017-03-13] MEDS ORDERED: WARFARIN 2.5 MG TAB PO ONE (18:00)
[2017-03-13] MEDS: amLODIPine 5 MG TAB PO SCH (22:33)
[2017-03-13] MEDS: ATORVASTATIN 20 MG TAB PO SCH (22:34)
[2017-03-13] MEDS ORDERED: ACETAMINOPHEN TAB 325 MG TAB PO PRN (23:32)
[2017-03-14 06:37] LABS: INR 1.5 (<1.1); Prothrombin Time 14.9 sec (9.0-12.0)
[2017-03-14 06:48] LABS: Calcium 7.6 mg/dL (8.4-10.2); Potassium 3.3 mmol/L (3.5-5.1)
--- NOTE | 2017-03-14 07:32 | PN ---
DATE OF SERVICE: 03/13/2017 ATTENDING NOTE: This patient was seen and examined by me earlier today. I reviewed the note of my nurse practitioner, Ms. Neri. Reviewed and discussed additional findings as below. This is a patient with COPD exacerbation and CHF exacerbation. Has been switched to oral diuretics. Overall ( ) was much better. Edema has gone down. On examination, blood pressure 111/59, pulse ox 96% on room air. LUNGS: Clear. CARDIOVASCULAR: First and second sounds normal. INVESTIGATIONS: BUN 31, creatinine 1.93. INR is 2. ASSESSMENT: 1. Acute chronic obstructive pulmonary disease exacerbation in an ex-smoker, improved. 2. Acute on chronic congestive heart failure from diastolic dysfunction, improved. 3. 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 PLAN: Will check patient's BMP in the morning. Care was discussed with the patient. Looking and feeling much better.
[2017-03-14] MEDS ORDERED: DOCUSATE 100 MG CAP PO SCH (09:00)
[2017-03-14] MEDS ORDERED: FUROSEMIDE 40 MG TAB PO SCH (09:00)
[2017-03-14] MEDS: IPRATROPIUM-ALBUTEROL 3 ML NEB INHALATION SCH ×2 (09:09→10:42)
[2017-03-14] MEDS: CALCIUM CARBONATE 500 MG CHEWABLE PO SCH (09:39)
[2017-03-14] MEDS: PANTOPRAZOLE 40 MG TABLET PO SCH (09:40)
[2017-03-14] MEDS: LISINOPRIL 20 MG TAB PO SCH (09:40)
[2017-03-14] MEDS: METOPROLOL TARTRATE 50 MG TAB PO SCH (09:41)
[2017-03-14 11:16] VITALS: RESP 18
[2017-03-14] MEDS: POTASSIUM CHLORIDE ER 20 MEQ TAB.ER PO SCH ×3 (11:35→11:40)
[2017-03-14] MEDS ORDERED: ENOXAPARIN 60 MG/0.6 ML SYRINGE SQ STA (12:19)
--- NOTE | 2017-03-14 12:32 | P.PN ---
Subjective Principal diagnosis: Shortness of breath This is an 86-year-old female who follows regularly with Dr. Reno Davies in the office. She has history of hyperlipidemia, hypertension, atrial fibrillation with prior ablation, prior pacemaker implantation, COPD, she presented to the hospital with symptoms of progressive dyspnea, likely secondary to accommodation of COPD and diastolic congestive heart failure. Patient is currently on by mouth Lasix. Doing well overall today. Potassium 3.3, replaced. INR today 1.5, 5 of Coumadin given today. Creatinine 1.8. Objective - Vital Signs Vital signs: Vital Signs Temp 97.6 F 03/14/17 08:00 Pulse 58 L 03/14/17 08:00 Resp 18 03/14/17 08:00 BP 113/60 03/14/17 08:00 Pulse Ox 96 03/14/17 08:00 Intake & Output 03/13/17 03/14/17 03/14/17 18:59 06:59 18:59 Intake Total 720 480 200 Output Total 1100 1200 Balance -380 -720 200 Weight 60.1 kg Intake: Oral 720 480 200 Output: Urine 1100 1200 Other: Voiding Method Bedside Commode Bedside Commode Bedside Commode # Voids 1 0 1 # Bowel Movements 1 - Exam PHYSICAL EXAMINATION: HEENT: Head is atraumatic, normocephalic. Pupils equal, round. Neck is supple. There is no elevated jugular venous pressure. HEART EXAMINATION: Heart S1 and S2 systolic murmur is heard. CHEST EXAMINATION: Lungs are clear with diminished air entry to bilateral bases. ABDOMEN: Soft, nontender. Bowel sounds are heard. No organomegaly noted. EXTREMITIES: 2+ peripheral pulses with no evidence of peripheral edema and no calf tenderness noted. NEUROLOGIC patient is awake, alert and oriented -3. . - Labs CBC & Chem 7: 03/11/17 11:41 03/14/17 06:22 Labs: Abnormal Lab Results - Last 24 Hours (Table) 03/12/17 03/14/17 03/14/17 Range/Units 05:45 06:22 06:22 PT 14.9 H (9.0-12.0) sec Sodium 136 L (137-145) mmol/L Potassium 3.3 L (3.5-5.1) mmol/L BUN 33 H (7-17) mg/dL Creatinine 1.81 H (0.52-1.04) mg/dL Calcium 7.6 L (8.4-10.2) mg/dL CA 27-29 161.2 H (0.0-38.5) U/mL Microbiology - Last 24 Hours (Table) 03/11/17 11:41 Blood Culture - Preliminary Blood No Growth after 48 hours Assessment and Plan (1) Diastolic CHF, acute on chronic Status: Acute (2) COPD exacerbation Status: Acute (3) Chronic a-fib Status: Acute (4) S/P ablation of atrial fibrillation Status: Acute (5) HTN (hypertension) Status: Acute (6) Hyperlipemia Status: Acute (7) Hx of breast cancer Status: Acute Plan: From cardiology's perspective, we will replace the patient's potassium, give 5 mg of Coumadin today, continue current dose of by mouth Lasix. If the patient is discharged home today we will make her a follow-up appointment to see Dr. TRISHA Davies in the office. PT/INR lytes BUN and creatinine on Tuesday. DNP note has been reviewed, I agree with a documented findings and plan of care. Patient was seen and examined.
[2017-03-14 12:40] VITALS: BP 105/54; PULSE 105; TEMP 97
[2017-03-14] MEDS ORDERED: WARFARIN 5 MG TAB PO ONE (18:00)
--- NOTE | 2017-03-18 13:15 | DS ---
DATE OF ADMISSION: 03/11/2017 DATE OF DISCHARGE: 03/14/2017 FINAL DIAGNOSES: 1. Acute chronic obstructive pulmonary disease exacerbation in a ex-smoker. 2. Acute on chronic congestive heart failure exacerbation from diastolic dysfunction. Ejection fraction not known. 3. History atrial fibrillation, status post AV shaka ablation with permanent pacemaker. 4. Gastroesophageal reflux disease. 5. Hyperlipidemia. 6. Essential hypertension. 7. Primary osteoarthritis of multiple joints. 8. Chronic urinary stress incontinence. 9. Bilateral breast cancer related to bone metastatic, followed by Dr. Thorne. 10. Coumadin monitoring. 11. Chronic kidney disease, stage III, likely from hypertensive nephrosclerosis. 12. Coumadin toxicity with no evidence of bleeding. HOSPITAL COURSE: This patient with COPD and CHF exacerbations received diuretics, bronchodilators, steroids. She responded well. Doing better at the time of discharge. Heart rate better controlled. INR was up. Small amount of vitamin K was given, a small dose. CONSULTATIONS: 1. Dr. Rhodes from Cardiology. 2. Dr. Davis from Oncology. DISCHARGE MEDICATIONS: 1. Lipitor 20 mg q.h.s. 2. Nexium 40 mg a day. 3. Zestril 20 mg b.i.d. 4. Lopressor 100 mg b.i.d. 5. Calcium 600 mg p.o. b.i.d. 6. ( ) 25 mg p.o. daily at noon. 7. Ativan 0.5 p.o. daily p.r.n. 8. Xgeva injection 120 mg subcu every 30 days. 9. Lasix 40 mg a day. 10. Potassium 20 mEq a day. 11. Coumadin 2.5 mg daily. 12. Norvasc 5 mg at bedtime. Follow up with Dr. Xiong on 03/21/2017. Follow up with Dr. BR. Davies on 03/16/2017. Follow with Dr. Thorne, keep appointment. INR and BMP in 3 days. Discharge planning more than 35 minutes.
== END 2017-03-14 14:45 | disposition home or self-care (01) | DRG 291 ==
LOC: EC 11:16 → 6SEL 15:18
PROVIDERS: ADMIT Hospitalist; ATTEND Hospitalist
DX: I13.0 Hypertensive heart and chronic kidney disease with heart failure and stage 1 through stage 4 chronic kidney disease, or unspecified chronic kidney disease (principal); I50.33 Acute on chronic diastolic (congestive) heart failure; C79.51 Secondary malignant neoplasm of bone; J44.1 Chronic obstructive pulmonary disease with (acute) exacerbation; I48.0 Paroxysmal atrial fibrillation; I27.2 Other secondary pulmonary hypertension; I48.2 Chronic atrial fibrillation; E78.5 Hyperlipidemia, unspecified; I08.0 Rheumatic disorders of both mitral and aortic valves; I49.3 Ventricular premature depolarization; I95.1 Orthostatic hypotension; K21.9 Gastro-esophageal reflux disease without esophagitis; K64.9 Unspecified hemorrhoids; N18.3 Chronic kidney disease, stage 3 (moderate); N39.3 Stress incontinence (female) (male); R79.1 Abnormal coagulation profile; M15.9 Polyosteoarthritis, unspecified; Z79.811 Long term (current) use of aromatase inhibitors; Z79.899 Other long term (current) drug therapy; Z79.01 Long term (current) use of anticoagulants; Z85.3 Personal history of malignant neoplasm of breast; Z85.828 Personal history of other malignant neoplasm of skin; Z87.891 Personal history of nicotine dependence; Z95.0 Presence of cardiac pacemaker; Z88.5 Allergy status to narcotic agent; Z82.49 Family history of ischemic heart disease and other diseases of the circulatory system
CPT/HCPCS: 36415; 71020; 80048; 80053; 81001; 82550; 82553; 83735; 83880; 84484; 85025; 85610; 85730; 86300; 87040; 93005; 94640; 94760; 96374; 99285

== ENCOUNTER → 2017-03-17 | Outpatient (CLI) | payer MEDICARE, BC ==
[2017-03-17 11:10] LABS: INR 2.5 (<1.1)
[2017-03-17 11:11] LABS: Calcium 8.5 mg/dL (8.4-10.2); Potassium 4.4 mmol/L (3.5-5.1)
[2017-03-17 12:04] LABS: CH 32.1; CHCM 33.1; HCT 35.3 % (34.0-46.0); HDW 2.49; HGB 12.3 gm/dL (11.4-16.0); MCH 34.1 pg (25.0-35.0); MCHC 34.9 g/dL (31.0-37.0); MCV 97.5 fL (80.0-100.0); Mean Platelet Volume 7.5; RBC 3.62 m/uL (3.80-5.40); RDW 15.2 % (11.5-15.5); WBC 5.7 k/uL (3.8-10.6)
--- NOTE | 2017-03-17 12:26 | XR ---
EXAMINATION TYPE: XR chest 2V DATE OF EXAM: 03/17/2017 COMPARISON: 03/11/2017 INDICATION: A. Fib, dyspnea TECHNIQUE: Frontal and lateral views of the chest are obtained. FINDINGS: The heart size is normal. The pulmonary vasculature is normal. The lungs are clear. Small bilateral pleural effusions are present. Axillary surgical clips are pres ent bilaterally. Electronic device overlies left chest. IMPRESSION: 1. Small bilateral pleural effusions.
== END | disposition home or self-care (01) ==
LOC: LABWHC1 10:02
PROVIDERS: ATTEND Internal Medicine Interventional Cardiology
DX: J90 Pleural effusion, not elsewhere classified (principal); I48.91 Unspecified atrial fibrillation; I50.9 Heart failure, unspecified
CPT/HCPCS: 36415; 71020; 80048; 85027; 85610

== ENCOUNTER 2017-04-17 15:38 | Inpatient (IN) | payer MEDICARE, BC ==
[2017-04-17] MEDS ORDERED: ONDANSETRON 4 MG/2 ML VIAL IVP STA (17:14)
[2017-04-17] MEDS ORDERED: SODIUM CHLORIDE 0.9% 1,000 ML IV ONE (17:14)
[2017-04-17] MEDS ORDERED: RX INFO: IV CONTRAST WAS GIVEN 1 EACH MISC MISCELLANE PRN (17:14)
[2017-04-17 17:47] LABS: Anisocytosis Slight; Basophils % (A) 1 %; CH 32.8; CHCM 32.9; Eosinophils # (A) 0.2 k/uL (0-0.7); Eosinophils % (A) 3 %; HCT 35.4 % (34.0-46.0); HDW 2.64; HGB 11.7 gm/dL (11.4-16.0); Luc # (Auto) 0.06; Luc % (Auto) 1; Lymphocytes # (A) 1.1 k/uL (1.0-4.8); Lymphocytes % (A) 15 %; MCH 33.2 pg (25.0-35.0); MCHC 33.1 g/dL (31.0-37.0); MCV 100.4 fL (80.0-100.0); Macrocytosis Slight; Mean Platelet Volume 8.5; Monocytes # (A) 0.4 k/uL (0-1.0); Monocytes % (A) 6 %; Neutrophils # (A) 5.1 k/uL (1.3-7.7); Neutrophils % (A) 75 %; RBC 3.53 m/uL (3.80-5.40); RDW 17.1 % (11.5-15.5); WBC 6.9 k/uL (3.8-10.6); WBC (Perox) 6.89
--- NOTE | 2017-04-17 18:03 | XR ---
EXAMINATION TYPE: XR chest 2V DATE OF EXAM: 04/17/2017 COMPARISON: 03/17/2017 HISTORY: Abdominal pain TECHNIQUE: Frontal and lateral views of the chest are obtained. FINDINGS: There is pulmonary vascular congestion. There is blunting of costophrenic angles. There is a right axillary pacemaker with lead tips in the right ventricle. There is patchy osteosclerosis in the thoracic spine. IMPRESSION: Mild congestive heart failure with pleural effusions. Pulmonary congestion is worse than last exam. There is sclerosis in the bony thorax suspicious for metastatic disease.
[2017-04-17 18:04] LABS: Calcium 8.4 mg/dL (8.4-10.2); Total Bilirubin 1.1 mg/dL (0.2-1.3); Total Protein 6.4 g/dL (6.3-8.2)
[2017-04-17 18:06] LABS: Potassium 5.9 mmol/L (3.5-5.1)
--- NOTE | 2017-04-17 18:15 | ED ---
Abdominal Pain HPI - General Chief Complaint: Abdominal Pain Stated Complaint: Abd pain/bloating, CARLOS Source: patient Mode of arrival: wheelchair Limitations: no limitations - History of Present Illness Initial Comments: 86-year-old female with past medical history of seizure fibrillation, hyperlipidemia, hypertension, osteoarthritis, recurrent pneumonia, GERD/reflux, bone cancer, basal cell skin cancer, cardiac ablation, cholecystectomy, heart catheterization, tubal ligation presenting for evaluation of generalized abdominal pain for the last 3 weeks. States associated diarrhea and constipation during this time as well as back pain, which she states it more chronic in nature. She has tried mag citrate as well as multiple enemas without improvement in symptoms. She states yesterday her symptoms markedly worsened when her abdomen became distended and she had bilious emesis. States a small BM today and decreased flatus although still present. - Related Data Home Medications Medication Instructions Recorded Confirmed Atorvastatin [Lipitor] 20 mg PO HS 03/08/14 04/17/17 Esomeprazole Magnesium [NexIUM] 40 mg PO DAILY@1200 03/08/14 04/17/17 Metoprolol Tartrate [Lopressor] 100 mg PO BID 03/08/14 04/17/17 Calcium Carbonate [Calcium] 600 mg PO BID 03/11/17 04/17/17 LORazepam [Ativan] 0.5 mg PO DAILY PRN 03/11/17 04/17/17 Xgeva Injection 120 mg SQ Q30D 03/11/17 04/17/17 Lisinopril [Zestril] 10 mg PO DAILY 04/17/17 04/17/17 Previous Rx's Medication Instructions Recorded Potassium Chloride ER [K-Dur 20] 20 meq PO DAILY #30 tab 03/14/17 Allergies Allergy/AdvReac Type Severity Reaction Status Date / Time codeine AdvReac Nausea & Verified 04/17/17 17:29 Vomiting Review of Systems ROS Statement: Those systems with pertinent positive or pertinent negative responses have been documented in the HPI. ROS Other: All systems not noted in ROS Statement are negative. Constitutional: Denies: fever, chills Eyes: Denies: eye pain, vision change ENT: Denies: ear pain, throat pain Respiratory: Reports: dyspnea. Denies: cough Cardiovascular: Denies: chest pain, palpitations Endocrine: Denies: fatigue, polydipsia Gastrointestinal: Reports: abdominal pain, nausea, vomiting, diarrhea, constipation. Denies: hematemesis, melena, hematochezia Genitourinary: Denies: urgency, dysuria Musculoskeletal: Reports: back pain. Denies: arthralgia Skin: Denies: rash, lesions Neurological: Denies: headache, weakness Psychiatric: Denies: anxiety, depression Hematological/Lymphatic: Denies: easy bleeding, swollen glands Past Medical History Past Medical History: Atrial Fibrillation, Cancer, GERD/Reflux, Hyperlipidemia, Hypertension, Osteoarthritis (OA), Pneumonia Additional Past Medical History / Comment(s): bone cancer, SINUS, HEMORRHOIDS, PNE X5, MULTIPLE BASAL CELL SKIN CANCER LESIONS REMOVED."DOUBLE VISION SINCE CATARACT SX", STRESS INCONT OF URINE.past fx lt wrist. History of Any Multi-Drug Resistant Organisms: None Reported Past Surgical History: Breast Surgery, Cardiac Ablation, Cholecystectomy, Heart Catheterization, Orthopedic Surgery, Tubal Ligation Additional Past Surgical History / Comment(s): RT knee arthroscopy., bilateral mastectomy, skin ca removed, d&c, lt wrist sx d/t fx-stated no metal in palce Past Anesthesia/Blood Transfusion Reactions: No Reported Reaction Type of Cardiac Device: Permanent Pacemaker Device Placement Date:: unknown Past Psychological History: No Psychological Hx Reported Smoking Status: Former smoker - Past Family History Mother Family Medical History: Diabetes Mellitus, Myocardial Infarction ([place]) Father Family Medical History: AFIB, Cancer, Prostate Disorder Additional Family Medical History / Comment(s): prostate cancer General Exam Limitations: no limitations General appearance: alert, in no apparent distress Head exam: Present: atraumatic, normocephalic, normal inspection Eye exam: Present: normal appearance, PERRL, EOMI. Absent: scleral icterus, conjunctival injection, periorbital swelling ENT exam: Present: normal exam, mucous membranes moist Neck exam: Present: normal inspection. Absent: tenderness, meningismus, lymphadenopathy Respiratory exam: Present: normal lung sounds bilaterally. Absent: respiratory distress, wheezes, rales, rhonchi, stridor Cardiovascular Exam: Present: regular rate, normal rhythm, normal heart sounds. Absent: systolic murmur, diastolic murmur, rubs, gallop, clicks GI/Abdominal exam: Present: soft, distended, tenderness, normal bowel sounds. Absent: guarding, rebound, rigid Rectal exam: Present: deferred Extremities exam: Present: normal inspection, full ROM, normal capillary refill. Absent: tenderness, pedal edema, joint swelling, calf tenderness Back exam: Present: normal inspection Neurological exam: Present: alert, oriented X3, CN II-XII intact Psychiatric exam: Present: normal affect, normal mood Skin exam: Present: warm, dry, intact, normal color. Absent: rash Course Vital Signs 04/17/17 04/17/17 04/17/17 15:51 19:32 20:44 Temperature 97.2 F L 98.4 F 97.3 F L Pulse Rate 64 59 L 60 Respiratory 18 20 19 Rate Blood Pressure 121/63 174/75 191/85 O2 Sat by Pulse 97 95 92 L Oximetry Medical Decision Making - Medical Decision Making 36-year-old female presented for evaluation of abdominal pain and abdominal distention. On physical examination she has a markedly distended abdomen that is only mildly tender to palpation. There are no peritoneal signs of guarding, rigidity, or rebound however there is a slight fluid wave noted. The patient is unaware of any history of liver failure or ascites. The remainder of her physical exam is within normal limits and without significant findings. Concern for bowel obstruction versus liver failure with ascites. We' ll obtain labs, EKG, chest x-ray, CT abdomen and pelvis, and provide IV fluids and Zofran. The patient was offered pain control but refused stating that she had Tylenol before coming to the ED. Labs revealed a mild transaminitis, acute kidney injury, hyponatremia, hyperkalemia although the specimen was slightly hemolyzed, and elevated INR. CT abdomen and pelvis showed large pleural effusions unchanged from previous imaging and massive ascites that is worse than old CTs. Her changes in the liver consistent with cirrhosis however there are no dilated ducts. There is hydronephrosis that worse on the left side compared to the right but this is similar to her old exams. The patient was reevaluated and continued to have only minimal pain and refused an control. She was informed of all results and that she would be admitted for further treatment and evaluation. Dr. Alegria accepted the admission with request for consult with Dr. Ruby (GI) and hem/onc. She also requested tumor marker labs which will be sent in the morning. Admission order placed and bed request submitted. - Lab Data Result diagrams: 04/17/17 17:28 04/17/17 17:28 Lab Results 04/17/17 04/17/17 04/17/17 Range/Units 17:28 17:28 17:28 WBC 6.9 (3.8-10.6) k/uL RBC 3.53 L (3.80-5.40) m/uL Hgb 11.7 (11.4-16.0) gm/dL Hct 35.4 (34.0-46.0) % MCV 100.4 H (80.0-100.0) fL MCH 33.2 (25.0-35.0) pg MCHC 33.1 (31.0-37.0) g/dL RDW 17.1 H (11.5-15.5) % Plt Count 138 L (150-450) k/uL Neutrophils % 75 % Lymphocytes % 15 % Monocytes % 6 % Eosinophils % 3 % Basophils % 1 % Neutrophils # 5.1 (1.3-7.7) k/uL Lymphocytes # 1.1 (1.0-4.8) k/uL Monocytes # 0.4 (0-1.0) k/uL Eosinophils # 0.2 (0-0.7) k/uL Basophils # 0.0 (0-0.2) k/uL Anisocytosis Slight Macrocytosis Slight PT (9.0-12.0) sec INR (<1.2) APTT (22.0-30.0) sec Sodium 135 L (137-145) mmol/L Potassium 5.9 H (3.5-5.1) mmol/L Chloride 107 (98-107) mmol/L Carbon Dioxide 19 L (22-30) mmol/L Anion Gap 9 mmol/L BUN 33 H (7-17) mg/dL Creatinine 1.69 H (0.52-1.04) mg/dL Est GFR (MDRD) Af Amer 35 (>60 ml/min/1.73 sqM) Est GFR (MDRD) Non-Af 29 (>60 ml/min/1.73 sqM) Glucose 99 (74-99) mg/dL Calcium 8.4 (8.4-10.2) mg/dL Total Bilirubin 1.1 (0.2-1.3) mg/dL AST 51 H (14-36) U/L ALT 48 (9-52) U/L Alkaline Phosphatase 184 H (38-126) U/L Troponin I (0.000-0.034) ng/mL NT-Pro-B Natriuret Pep 5180 pg/mL Total Protein 6.4 (6.3-8.2) g/dL Albumin 3.1 L (3.5-5.0) g/dL Lipase 232 (23-300) U/L 04/17/17 04/17/17 Range/Units 17:28 17:28 WBC (3.8-10.6) k/uL RBC (3.80-5.40) m/uL Hgb (11.4-16.0) gm/dL Hct (34.0-46.0) % MCV (80.0-100.0) fL MCH (25.0-35.0) pg MCHC (31.0-37.0) g/dL RDW (11.5-15.5) % Plt Count (150-450) k/uL Neutrophils % % Lymphocytes % % Monocytes % % Eosinophils % % Basophils % % Neutrophils # (1.3-7.7) k/uL Lymphocytes # (1.0-4.8) k/uL Monocytes # (0-1.0) k/uL Eosinophils # (0-0.7) k/uL Basophils # (0-0.2) k/uL Anisocytosis Macrocytosis PT 13.4 H (9.0-12.0) sec INR 1.4 H (<1.2) APTT 26.7 (22.0-30.0) sec Sodium (137-145) mmol/L Potassium (3.5-5.1) mmol/L Chloride (98-107) mmol/L Carbon Dioxide (22-30) mmol/L Anion Gap mmol/L BUN (7-17) mg/dL Creatinine (0.52-1.04) mg/dL Est GFR (MDRD) Af Amer (>60 ml/min/1.73 sqM) Est GFR (MDRD) Non-Af (>60 ml/min/1.73 sqM) Glucose (74-99) mg/dL Calcium (8.4-10.2) mg/dL Total Bilirubin (0.2-1.3) mg/dL AST (14-36) U/L ALT (9-52) U/L Alkaline Phosphatase (38-126) U/L Troponin I 0.031 (0.000-0.034) ng/mL NT-Pro-B Natriuret Pep pg/mL Total Protein (6.3-8.2) g/dL Albumin (3.5-5.0) g/dL Lipase (23-300) U/L 04/18/17 02:00 Electronic ventricular pacemaker with ventricular rate of 61, QRS 160, QT/QTC 500/503. Disposition Clinical Impression: Ascites, Transaminitis, Abdominal pain, Shortness of breath Disposition: ADMITTED IP TO THIS [facility] Decision to Admit Reason: Admit from EC Decision Date: 04/17/17 Decision Time: 20:11
--- NOTE | 2017-04-17 18:40 | CT ---
EXAMINATION TYPE: CT abdomen pelvis wo con DATE OF EXAM: 04/17/2017 COMPARISON: 02/14/2017 HISTORY: Patient complains of generalized abdominal pain and bloating. CT DLP: 318.4 mGycm Automated exposure control for dose reduction was used. TECHNIQUE: Helical acquisition of images was performed from the lung bases through the pelvis. FINDINGS: There are bilateral breast implants. There are large bilateral pleural effusions. There is atelectasi s in both lower lobes. There is massive ascites throughout the abdomen. Liver is small consistent with cirrhosis. Spleen sathya ears normal. There is no evidence of pancreatic mass. Bile ducts are not dilated. There is no adrenal mass. There is mild fullness of the pelvis of both kidneys. Exam is limited by la ck of any contrast. I see no sign of a bowel obstruction. Abdominal aorta is atheromatous. Urinary bl adder is almost empty. Uterus is anteverted. There are extensive osteoblastic changes in the spine co nsistent with metastatic disease. IMPRESSION: LARGE PLEURAL EFFUSIONS ARE UNCHANGED. MASSIVE ASCITES IS WORSE THAN OLD CT SCAN. CHANGES IN THE LIVER CONSISTENT WITH CIRRHOSIS. NO DILATED DUCTS. THERE IS HYDRONEPHROSIS WORSE ON TH E LEFT SIDE SUGGESTIVE OF PARTIAL OBSTRUCTION THAT IS SIMILAR TO OLD EXAM. EXTENSIVE ATHEROSCLEROTIC VASCULAR DISEASE.
[2017-04-17] MEDS ORDERED: NALOXONE 0.4 MG/ML 1 ML VIAL IV PRN (20:05)
[2017-04-17] MEDS ORDERED: ONDANSETRON 4 MG/2 ML VIAL IVP PRN (20:05)
[2017-04-17] MEDS ORDERED: LORazepam 0.5 MG TAB PO PRN (20:10)
[2017-04-17] MEDS ORDERED: XGEVA 120 MG SQ SCH (20:15)
[2017-04-17 20:40] LABS: INR 1.4 (<1.2); Partial Thromboplastin Time 26.7 sec (22.0-30.0); Prothrombin Time 13.4 sec (9.0-12.0)
[2017-04-17 22:12] VITALS: BMI 22.6
[2017-04-17] MEDS ORDERED: hydrALAZINE HCL 20 MG/ML 1 ML VIAL IVP PRN (22:49)
[2017-04-17] MEDS: ATORVASTATIN 20 MG TAB PO SCH (22:50)
[2017-04-17] MEDS: METOPROLOL TARTRATE 50 MG TAB PO SCH (22:51)
[2017-04-17] MEDS: SODIUM CHLORIDE 0.9% 1,000 ML IV SCH (23:13)
[2017-04-18 05:44] LABS: Anisocytosis Slight; Basophils % (A) 1 %; CH 32.5; CHCM 31.7; Eosinophils # (A) 0.2 k/uL (0-0.7); Eosinophils % (A) 4 %; HCT 35.7 % (34.0-46.0); HDW 2.69; HGB 11.3 gm/dL (11.4-16.0); Hypochromasia Slight; Luc # (Auto) 0.04; Luc % (Auto) 1; Lymphocytes # (A) 0.9 k/uL (1.0-4.8); Lymphocytes % (A) 16 %; MCH 32.7 pg (25.0-35.0); MCHC 31.6 g/dL (31.0-37.0); MCV 103.3 fL (80.0-100.0); Macrocytosis Moderate; Mean Platelet Volume 8.3; Monocytes # (A) 0.3 k/uL (0-1.0); Monocytes % (A) 6 %; Neutrophils % (A) 72 %; RBC 3.46 m/uL (3.80-5.40); RDW 17.3 % (11.5-15.5); WBC 5.6 k/uL (3.8-10.6); WBC (Perox) 5.89
[2017-04-18 05:49] LABS: INR 1.4 (<1.2); Prothrombin Time 13.8 sec (9.0-12.0)
[2017-04-18 05:57] LABS: Calcium 8.2 mg/dL (8.4-10.2); Magnesium 2.4 mg/dL (1.6-2.3); Phosphorous 3.6 mg/dL (2.5-4.5); Potassium 5.1 mmol/L (3.5-5.1); Total Bilirubin 0.8 mg/dL (0.2-1.3); Total Protein 5.5 g/dL (6.3-8.2)
[2017-04-18] MEDS: METOPROLOL TARTRATE 50 MG TAB PO SCH ×2 (08:29→22:16)
[2017-04-18] MEDS: SPIRONOLACTONE 25 MG TAB PO SCH (08:32)
[2017-04-18] MEDS: FUROSEMIDE 40 MG TAB PO SCH ×2 (08:32→22:16)
[2017-04-18] MEDS ORDERED: SPIRONOLACTONE 25 MG TAB PO SCH (09:00)
[2017-04-18] MEDS ORDERED: LISINOPRIL 10 MG TAB PO SCH (09:00)
[2017-04-18] MEDS ORDERED: PANTOPRAZOLE 40 MG TABLET PO SCH (12:00)
[2017-04-18] MEDS: LISINOPRIL 5 MG TAB PO SCH (12:31)
[2017-04-18 13:22] LABS: Hepatitis B Surface Ag Index 0.06
[2017-04-18 13:40] LABS: Hepatitis C Virus IgG Ab Negative (Negative); Hepatitis C Virus IgG Index 0.03
--- NOTE | 2017-04-18 14:03 | P.HPIM ---
History of Present Illness H&P Date: 04/18/17 Chief Complaint: Abdominal distention Pleasant 86-year-old lady patient of Dr. Bowie for which he established with the practice 2 weeks ago, has underlying history of breast cancer with metastases to the bone approximately 1-1/2 years ago with bilateral mastectomy right 1999 and left 2002, under the care of Dr. Thorne, Dr. TAMMY Davies for atrial fibrillation, GERD hyperlipidemia osteoarhtritis and a permanent pacemaker for atrial fibrillation. Was seen and currently is on intramuscular shots that was started 2 weeks ago. She was admitted from our facility 03/11/2017 secondary to pleural effusion aortic IV diuresis and was discharged on oral Lasix. At that time CAT scan of the abdomen and pelvis also shows the ascites and metastatic lesions to the bone, patient was not aware off this condition. She now complains of abdominal distention along with constipation, patient did not have relief with any [id number] medication, the ascites continues to bother her requiring now ER evaluation. ct of the abdomen and pelvis were reviewed from [email or web address] showed ascites being present, bilateral Valeria thickening, small bilateral pleural effusion are present, multipl all shoes abnormalities noted, there is right mild hydronephrosis noted, worse on the left side suggestive of partial obstruction, that similar to old exam extensive atherosclerotic vascular disease Review of Systems Constitutional: Reports as per HPI, Reports poor appetite, Reports weakness, Reports weight loss, Denies anorexia, Denies chills, Denies chronic headaches, Denies chronic pain, Denies daytime sleepiness, Denies fatigue, Denies fever, Denies lethargy, Denies malaise, Denies night sweats, Denies sweats, Denies weight gain Ears, nose, mouth and throat: Reports as per HPI Cardiovascular: Reports as per HPI, Reports decreased exercise tolerance Respiratory: Reports as per HPI Gastrointestinal: Reports as per HPI, Reports constipation, Reports indigestion , Reports nausea, Denies abdominal pain, Denies belching, Denies bloating, Denies BRBPR, Denies change in bowel habits, Denies coffee ground emesis, Denies diarrhea, Denies dyspepsia, Denies early satiety, Denies excessive gas, Denies heartburn, Denies hematemesis, Denies hematochezia, Denies jaundice, Denies lactose intolerance, Denies loss of appetite, Denies melena, Denies vomiting Genitourinary: Reports as per HPI, Denies abnormal vaginal bleeding, Denies decreased libido, Denies difficulty conceiving, Denies difficulty voiding, Denies dysmenorrhea, Denies dyspareunia, Denies dysuria, Denies flank pain, Denies genital sores, Denies hematuria, Denies hot flashes, Denies incomplete emptying, Denies kidney stones, Denies menorrhagia, Denies mixed incontinence, Denies nocturia, Denies pelvic pain, Denies post void dribbling, Denies , Denies prolapse symptoms, Denies stress incontinence, Denies urge incontinence , Denies urgency, Denies urinary frequency, Denies vaginal discharge, Denies vaginal dryness, Denies vaginal itching, Denies vaginal odor Menstruation: Reports as per HPI Musculoskeletal: Reports as per HPI, Denies arm numbness/tingling, Denies atrophy, Denies fractures, Denies frequent falls, Denies gait dysfunction, Denies hot joints, Denies leg numbness/tingling, Denies limitation of motion, Denies loss of height, Denies low back pain, Denies morning stiffness, Denies muscle cramps, Denies muscle weakness, Denies myalgias, Denies neck pain, Denies neck stiffness, Denies prior amputations, Denies redness of joints, Denies shooting arm pain, Denies shooting leg pain Integumentary: Reports as per HPI, Denies acne, Denies boils, Denies brittle nails, Denies change in hair/nails, Denies color changes, Denies darkening of skin, Denies depigmentation, Denies dryness, Denies foot/leg ulcers, Denies growths, Denies hirsutism, Denies lesions, Denies onychomycosis, Denies pruritus , Denies rash, Denies sores, Denies striae, Denies unusual bruising, Denies wounds Neurological: Reports as per HPI, Denies aphasia, Denies ataxia, Denies balance difficulties, Denies burning pain, Denies change in mentation, Denies change in smell/taste, Denies change in speech, Denies confusion, Denies convulsions, Denies double vision, Denies gait dysfunction, Denies head injury, Denies headaches, Denies hearing difficulties, Denies lack of coordination, Denies loss of vision, Denies memory loss, Denies migraines, Denies motor disturbance, Denies numbness, Denies paralysis, Denies paresthesias, Denies seizures, Denies sensory deficit, Denies spasticity, Denies syncope, Denies tic, Denies tingling , Denies transient paralysis, Denies tremors, Denies vertigo, Denies weakness, Denies visual changes Psychiatric: Reports as per HPI Endocrine: Reports as per HPI, Denies cold intolerance, Denies deepening of the voice, Denies excessive sweating, Denies excessive thirst, Denies fatigue, Denies flushing, Denies heat intolerance, Denies high blood sugars, Denies increase in ring/shoe/hat size, Denies low blood sugars, Denies nocturia, Denies palpitations, Denies polydipsia, Denies polyphagia, Denies polyuria, Denies proptosis, Denies recent glucocorticoid use, Denies thyroid mass, Denies weight change Hematologic/Lymphatic: Reports as per HPI, Denies easy bleeding, Denies easy bruising, Denies lymphadenopathy, Denies lymphedema, Denies thrombophilia Allergic/Immunologic: Reports as per HPI Past Medical History Past Medical History: Atrial Fibrillation, Cancer, GERD/Reflux, Hyperlipidemia, Hypertension, Osteoarthritis (OA), Pneumonia Additional Past Medical History / Comment(s): bone cancer, SINUS, HEMORRHOIDS, PNE X5, MULTIPLE BASAL CELL SKIN CANCER LESIONS REMOVED."DOUBLE VISION SINCE CATARACT SX", STRESS INCONT OF URINE.past fx lt wrist. History of Any Multi-Drug Resistant Organisms: None Reported Past Surgical History: Breast Surgery, Cardiac Ablation, Cholecystectomy, Heart Catheterization, Orthopedic Surgery, Tubal Ligation Additional Past Surgical History / Comment(s): RT knee arthroscopy., bilateral mastectomy, skin ca removed, d&c, lt wrist sx d/t fx-stated no metal in palce Past Anesthesia/Blood Transfusion Reactions: No Reported Reaction Type of Cardiac Device: Permanent Pacemaker Device Placement Date:: unknown Past Psychological History: No Psychological Hx Reported Smoking Status: Former smoker - Past Family History Mother Family Medical History: Diabetes Mellitus, Myocardial Infarction ([place]) Father Family Medical History: AFIB, Cancer, Prostate Disorder Additional Family Medical History / Comment(s): prostate cancer Medications and Allergies Home Medications Medication Instructions Recorded Confirmed Type Atorvastatin [Lipitor] 20 mg PO HS 03/08/14 04/17/17 History Esomeprazole Magnesium [NexIUM] 40 mg PO DAILY@1200 03/08/14 04/17/17 History Metoprolol Tartrate [Lopressor] 100 mg PO BID 03/08/14 04/17/17 History Calcium Carbonate [Calcium] 600 mg PO BID 03/11/17 04/17/17 History LORazepam [Ativan] 0.5 mg PO DAILY PRN 03/11/17 04/17/17 History Xgeva Injection 120 mg SQ Q30D 03/11/17 04/17/17 History Lisinopril [Zestril] 10 mg PO DAILY 04/17/17 04/17/17 History Allergies Allergy/AdvReac Type Severity Reaction Status Date / Time codeine AdvReac Nausea & Verified 04/17/17 17:29 Vomiting Physical Exam Vitals: Vital Signs Temp Pulse Pulse Resp BP BP Pulse Ox 04/18/17 07:00 98 F 60 16 127/59 91 L 04/18/17 00:20 159/76 04/18/17 00:00 61 04/17/17 23:00 181/78 04/17/17 22:20 179/84 04/17/17 21:05 97.0 F L 61 16 190/79 93 L 04/17/17 20:44 97.3 F L 60 19 191/85 92 L 04/17/17 19:32 98.4 F 59 L 20 174/75 95 04/17/17 15:51 97.2 F L 64 18 121/63 97 Intake and Output 04/17/17 04/18/17 04/18/17 22:59 06:59 14:59 Intake Total 20 200 Balance 20 200 Intake: Intake, IV Titration 20 200 Amount Sodium Chloride 0.9% 1, 20 200 000 ml @ 20 mls/hr IV . Q24H [facility] Rx#:[id number] Other: Voiding Method Toilet Toilet # Voids 1 2 Weight 63.503 kg 63.503 kg Patient Weight 04/19/17 06:59 Weight 63.503 kg - Constitutional General appearance: cooperative, no acute distress, thin - EENT Eyes: EOMI, fundus normal ENT: NA/AT, normal oropharynx - Neck Neck: normal ROM - Respiratory Respiratory: bilateral: CTA, negative: diminished, dullness, rales, rhonchi, wheezing - Cardiovascular Rhythm: regular Heart sounds: normal: S1, S2 Abnormal Heart Sounds: no systolic murmur, no diastolic murmur, no rub, no S3 Gallop, no S4 Gallop, no click, no other - Gastrointestinal General gastrointestinal: distended, normal bowel sounds, soft - Integumentary Integumentary: normal, normal turgor - Neurologic Neurologic: CNII-XII intact - Musculoskeletal Musculoskeletal: gait normal, strength equal bilaterally - Psychiatric Psychiatric: A&O x's 3, appropriate affect Results CBC & Chem 7: 04/18/17 05:24 04/18/17 05:24 Labs: Abnormal Lab Results - Last 24 Hours (Table) 04/17/17 04/17/17 04/17/17 Range/Units 17:28 17:28 17:28 RBC 3.53 L (3.80-5.40) m/uL Hgb (11.4-16.0) gm/dL MCV 100.4 H (80.0-100.0) fL RDW 17.1 H (11.5-15.5) % Plt Count 138 L (150-450) k/uL Lymphocytes # (1.0-4.8) k/uL PT 13.4 H (9.0-12.0) sec INR 1.4 H (<1.2) Sodium 135 L (137-145) mmol/L Potassium 5.9 H (3.5-5.1) mmol/L Chloride (98-107) mmol/L Carbon Dioxide 19 L (22-30) mmol/L BUN 33 H (7-17) mg/dL Creatinine 1.69 H (0.52-1.04) mg/dL Calcium (8.4-10.2) mg/dL Magnesium (1.6-2.3) mg/dL AST 51 H (14-36) U/L Alkaline Phosphatase 184 H (38-126) U/L Total Protein (6.3-8.2) g/dL Albumin 3.1 L (3.5-5.0) g/dL Carcinoembryonic Ag (0.0-5.0) ng/mL CA 125 Antigen (<35.1) U/mL 04/18/17 04/18/17 04/18/17 Range/Units 05:24 05:24 05:24 RBC 3.46 L (3.80-5.40) m/uL Hgb 11.3 L (11.4-16.0) gm/dL MCV 103.3 H (80.0-100.0) fL RDW 17.3 H (11.5-15.5) % Plt Count 113 L (150-450) k/uL Lymphocytes # 0.9 L (1.0-4.8) k/uL PT 13.8 H (9.0-12.0) sec INR 1.4 H (<1.2) Sodium 136 L (137-145) mmol/L Potassium (3.5-5.1) mmol/L Chloride 109 H (98-107) mmol/L Carbon Dioxide 20 L (22-30) mmol/L BUN 31 H (7-17) mg/dL Creatinine 1.60 H (0.52-1.04) mg/dL Calcium 8.2 L (8.4-10.2) mg/dL Magnesium 2.4 H (1.6-2.3) mg/dL AST 38 H (14-36) U/L Alkaline Phosphatase 175 H (38-126) U/L Total Protein 5.5 L (6.3-8.2) g/dL Albumin 2.7 L (3.5-5.0) g/dL Carcinoembryonic Ag 26.6 H (0.0-5.0) ng/mL CA 125 Antigen 1820.0 H (<35.1) U/mL Thrombosis Risk Factor Assmnt - Choose All That Apply Any of the Below Risk Factors Present?: No Other Risk Factors: Yes Each Risk Factor Represents 2 Points: Malignancy Each Risk Factor Represents 3 Points: Age 75 years or older Other congenital or acquired thrombophilia - If yes, enter type in comment: No Thrombosis Risk Factor Assessment Total Risk Factor Score: 5 Thrombosis Risk Factor Assessment Level: High Risk Assessment and Plan Plan: 1 symtpomatic ascites most related to malignancy, she has coexisting breast cancer however with elevated CA 125, and no prior malignancy is also suspected, patient was seen consultation by interventional radiology, Dr. Mckinnon, Dr. White, and Dr. Mckinnon. Patient was started on IV furosemide 40 mg twice a day along with spironolactone, abdominal paracentesis will be obtained to evaluate etiology of ascites, hepatitis B and C are negative 2. Large pleural effusion most likely secondary to malignancy, patient currently is asymptomatic for pulmonary symptoms, patient would be receiving IV diuretics at this time patient might need thoracentesis as well 3. Breast cancer with metastatic to the bone, patient failed to additional aromatase seen, patient had bilateral mastectomy performed follows with Dr. Fadumo darling on Xgeva 4. Atrial fibrillation not on any anticoagulation INR currently is a 20 point for allowing for abdominal paracentesis follows with the tammy Davies, continue on metoprolol, lisinopril Down to 5 mg, dilay to allow diuretic use 5. Bilateral hydronephrosis worse in the left suggestive of partial obstruction , chronic patient need stent placement we would consult urology 6 5liver cirrhosis, no currebnt or preivous etoh use, hepattis panel negative, dr hernandez consulted 6 Hyperlipidemia on Lipitor 7 Atherosclerotic cardiovascular disease asymtpomatic 8 History of permanent pacemaker placement 9 Moderate protein calorie malnutrition 10 CK D stage III avoid diuretics and hypotensionWith bilateral hydronephrosis noted, consult was made with urology 11Cachexia with weight loss related to malignancy patient will start on Remeron , this will be discuseed ith the paitent 12Previous tobacco use 13COPD without any exacerbation CODE STATUS DO NOT RESUSCITATE CODE STATUS DO NOT RESUSCITATE GI prophylaxis and DVT prophylaxis started on Lovenox high risk, to be started after after abdomen paracentesis
[2017-04-18 14:09] LABS: Iron 55 ug/dL (37-170)
[2017-04-18 14:23] LABS: % Iron Saturation 26.6 % (20-50); Total Iron Binding Capacity 207 ug/dL (265-497)
[2017-04-18] MEDS ORDERED: ACETAMINOPHEN TAB 325 MG TAB PO PRN (15:54)
--- NOTE | 2017-04-18 15:56 | US ---
EXAMINATION TYPE: US paracentesis abd w/image DATE OF EXAM: 04/18/2017 COMPARISON: NONE HISTORY: Ascites. PROCEDURE: Maximal barrier technique was utilized. The skin overlying a suitable pocket of fluid was localized with ultrasound and the overlying skin was prepped and draped. Ultrasound was utilized with sterile technique. Lidocaine was used for local anesthesia and a skin marie made with a scalpel. Catheter was advanced under direct ultrasound guidance into a suitable pocket of fluid and approximately 4.5 liter s of serous fluid were removed. Catheter was withdrawn and hemostasis achieved. There is no immedia te complication; the patient is discharged in stable condition. Specimen sent for laboratory analysis . IMPRESSION: STATUS POST ULTRASOUND GUIDED PARACENTESIS FOR PALLIATION OF ASCITES. THIS PROCEDURE WA S PERFORMED BY THE UNDERSIGNED.
[2017-04-18 16:54] LABS: RBC, Body Fluid 0 /uL
--- NOTE | 2017-04-18 17:02 | CONS ---
DATE OF CONSULTATION: 04/18/2017 REASON FOR CONSULTATION: New-onset ascites and abdominal distention. HISTORY OF PRESENT ILLNESS: The patient is an 86-year-old pleasant white female , admitted to the hospital because of progressive abdominal distention for the last 3 weeks' duration. She also noted alternative diarrhea and constipation for the same duration of time. She denies any abdominal pain. No nausea or vomiting. She came into the emergency room because of progressive abdominal distention, and she had a CT of the abdomen and pelvis done in the emergency room that showed massive ascites and also nodular-appearing liver consistent with liver cirrhosis. The patient has no prior history of chronic liver disease, no history of jaundice or hepatitis in the past, no history of alcohol use. She was diagnosed with breast cancer with bone metastases and follows with Dr. Thorne; according to her, this has been stable. Her past medical history is significant for: 1. Metastatic breast cancer. 2. Hypertension. 3. Hypercholesterolemia. 4. Anxiety. MEDICATIONS AT HOME: 1. Lipitor. 2. Nexium. 3. Lopressor. 4. Calcium. 5. Ativan. 6. Xgeva injections. 7. Zestril. 8. Potassium chloride. ALLERGIES: CODEINE. PAST SURGICAL HISTORY: 1. Skin cancer removal. 2. Bilateral cataract surgery. 3. Breast surgery. 4. Cholecystectomy. 5. Tubal ligation. SOCIAL HISTORY: No smoking. No alcohol use. FAMILY HISTORY: Mother with diabetes and an [place]. Father had prostate cancer. REVIEW OF SYSTEMS: CARDIOPULMONARY: No chest pain or shortness of breath. GENITOURINARY: No dysuria or hematuria. MUSCULOSKELETAL: Unremarkable. SKIN: Unremarkable. ENDOCRINE: Unremarkable. PSYCHIATRY: Unremarkable. NEUROLOGY: Unremarkable. ENT/VISION: Unremarkable. CONSTITUTIONAL: Weight loss of 10 pounds in the last 3 weeks. On physical examination, she appears comfortable, in no apparent distress. Vital signs are stable. Blood pressure is 181/78, pulse rate 61 per minute, temperature 98.2. HEENT EXAMINATION: Unremarkable. Conjunctivae are pink, sclerae anicteric. Oral cavity with no lesions. NECK: No JVD or lymph node enlargement. Chest was clear to auscultation. HEART: Regular rate and rhythm. ABDOMEN: Soft, distended. Shifting dullness positive. EXTREMITIES: No pedal edema. SKIN: No rashes. NEURO: She is alert and oriented x3. No focal deficits. LABS: WBC 6.9, hemoglobin 11.5, platelets 138. PT 13.8, INR 1.4. BUN 31, creatinine 1.6. AST 51, ALT 48, alkaline phosphatase 184. CA-125 was 1820. CEA is 26.6. Alpha-fetoprotein normal at 3.5. IMPRESSION: 1. New onset of ascites. Patient with no known history of underlying liver disease, no history of chronic liver disease in the past. CT of the abdomen did show new-onset ascites as well as nodularity-appearing liver consistent with cirrhosis of the liver. Etiology unclear. No history of alcohol use. 2. Elevated CA-125. 3. Change in bowel habits. RECOMMENDATIONS: 1. Will schedule the patient for a large-volume diagnostic and therapeutic paracentesis today and send the fluid for cytology as well as fluid analysis. 2. In the meantime, will also initiate workup for chronic liver disease. 3. Obtain DIRECTIONAL BORE OPERATOR consultation in regards to elevated CA-125 levels. The plan was discussed with the patient's family, who are agreeable to it. Will follow her closely during her hospital stay. Thank you for this consultation. EMRE
[2017-04-18] MEDS ORDERED: HYDROmorphone 1 MG/ML 1 ML SYRINGE IVP PRN (18:36)
--- NOTE | 2017-04-18 18:39 | P.CONS ---
History of Present Illness - Reason for Consult Consult date: 04/18/17 metastatic breast cancer Requesting physician: Kalyan Lazo - Chief Complaint abd distension - History of Present Illness Pt is a very pleasant female pt originally of Dr. Coulter-seen by him last in 2008- but who now sees Dr. Thorne-first seen by him in 2013. 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 Pt was seen in [facility] in 2013 for weakness and SOB, CXR suspect bone mets, PET revealed slight SUV uptake in multiple bones. She returned to [place] for work up and treatment. CT and [place] bone scan showed bone mets but no visceral disease, bone marrow showed metastatic breast cancer, ER/OH +/+ , [id number] equivocal, she was started on aromasin and Xgeva. 03/11 CT CAP and bone scan showed stable bone mets, no visceral mets. She continued to do well until 03/31/17 when she had c/o increase MS pain and progressive weakness, she had pleural effusion, cytology pending, her Ca 15-3 tumor marker was increasing so, therapy was recently changed, she had her 1st falsodex injections 2 weeks ago and she is due for 2nd dose this week. Pt sttes coming to hospital for increasing abd distension, she has had paracentesis and states distension is better but she is having some abd cramping , she states it is getting better as the day goes on, she denies fevers, oral irritation, she ate some soup without nausea or vomiting, breathing is stable, no changes in bowel or bladder habits, bleeding or other pain to report, she tolerated her 1st dose of faslodex well. Review of Systems All systems: negative Constitutional: Reports as per HPI Past Medical History Past Medical History: Atrial Fibrillation, Cancer, GERD/Reflux, Hyperlipidemia, Hypertension, Osteoarthritis (OA), Pneumonia Additional Past Medical History / Comment(s): bone cancer, SINUS, HEMORRHOIDS, PNE X5, MULTIPLE BASAL CELL SKIN CANCER LESIONS REMOVED."DOUBLE VISION SINCE CATARACT SX", STRESS INCONT OF URINE.past fx lt wrist. History of Any Multi-Drug Resistant Organisms: None Reported Past Surgical History: Breast Surgery, Cardiac Ablation, Cholecystectomy, Heart Catheterization, Orthopedic Surgery, Tubal Ligation Additional Past Surgical History / Comment(s): RT knee arthroscopy., bilateral mastectomy, skin ca removed, d&c, lt wrist sx d/t fx-stated no metal in palce Past Anesthesia/Blood Transfusion Reactions: No Reported Reaction Type of Cardiac Device: Permanent Pacemaker Device Placement Date:: unknown Past Psychological History: No Psychological Hx Reported Smoking Status: Former smoker - Past Family History Mother Family Medical History: Diabetes Mellitus, Myocardial Infarction ([place]) Father Family Medical History: AFIB, Cancer, Prostate Disorder Additional Family Medical History / Comment(s): prostate cancer Medications and Allergies Home Medications Medication Instructions Recorded Confirmed Type Atorvastatin [Lipitor] 20 mg PO HS 03/08/14 04/17/17 History Esomeprazole Magnesium [NexIUM] 40 mg PO DAILY@1200 03/08/14 04/17/17 History Metoprolol Tartrate [Lopressor] 100 mg PO BID 03/08/14 04/17/17 History Calcium Carbonate [Calcium] 600 mg PO BID 03/11/17 04/17/17 History LORazepam [Ativan] 0.5 mg PO DAILY PRN 03/11/17 04/17/17 History Xgeva Injection 120 mg SQ Q30D 03/11/17 04/17/17 History Lisinopril [Zestril] 10 mg PO DAILY 04/17/17 04/17/17 History Allergies Allergy/AdvReac Type Severity Reaction Status Date / Time codeine AdvReac Nausea & Verified 04/17/17 17:29 Vomiting Physical Exam Vitals: Vital Signs Temp Pulse Pulse Resp BP BP Pulse Ox 04/18/17 15:00 97.5 F L 61 18 165/78 95 04/18/17 14:39 135 H 16 04/18/17 13:35 60 16 136/67 94 L 04/18/17 13:05 60 16 135/63 93 L 04/18/17 07:00 98 F 60 16 127/59 91 L 04/18/17 00:20 159/76 04/18/17 00:00 61 04/17/17 23:00 181/78 04/17/17 22:20 179/84 04/17/17 21:05 97.0 F L 61 16 190/79 93 L 04/17/17 20:44 97.3 F L 60 19 191/85 92 L 04/17/17 19:32 98.4 F 59 L 20 174/75 95 Intake and Output 04/18/17 04/18/17 04/18/17 06:59 14:59 22:59 Intake Total 200 160 Balance 200 160 Intake: Intake, IV Titration 200 160 Amount Sodium Chloride 0.9% 1, 200 160 000 ml @ 20 mls/hr IV . Q24H [facility] Rx#:[id number] Other: Voiding Method Toilet Toilet Toilet # Voids 1 2 Weight 63.503 kg Patient Weight 04/19/17 06:59 Weight 63.503 kg - Constitutional General appearance: cooperative, no acute distress, thin - EENT Eyes: anicteric sclerae, EOMI, PERRLA, normal appearance ENT: hearing grossly normal, normal oropharynx - Neck Neck: no lymphadenopathy - Respiratory Respiratory: bilateral: diminished (bases, pt has abd discomfort with deep inspiration) - Cardiovascular Rhythm: regular Heart sounds: normal: S1, S2 leg Peripheral Edema: bilateral: Trace - Gastrointestinal abd is firm, pt guarding, not able to examine liver/spleen General gastrointestinal: normal bowel sounds - Integumentary Integumentary: pale - Neurologic Neurologic: CNII-XII intact - Musculoskeletal Musculoskeletal: strength equal bilaterally - Psychiatric Psychiatric: A&O x's 3, appropriate affect, intact judgment & insight Results CBC & Chem 7: 04/18/17 05:24 04/18/17 05:24 Labs: Abnormal Lab Results - Last 24 Hours (Table) 04/17/17 04/18/17 04/18/17 Range/Units 17:28 05:24 05:24 RBC 3.46 L (3.80-5.40) m/uL Hgb 11.3 L (11.4-16.0) gm/dL MCV 103.3 H (80.0-100.0) fL RDW 17.3 H (11.5-15.5) % Plt Count 113 L (150-450) k/uL Lymphocytes # 0.9 L (1.0-4.8) k/uL PT 13.4 H (9.0-12.0) sec INR 1.4 H (<1.2) Sodium 136 L (137-145) mmol/L Chloride 109 H (98-107) mmol/L Carbon Dioxide 20 L (22-30) mmol/L BUN 31 H (7-17) mg/dL Creatinine 1.60 H (0.52-1.04) mg/dL Calcium 8.2 L (8.4-10.2) mg/dL Magnesium 2.4 H (1.6-2.3) mg/dL TIBC (265-497) ug/dL Ferritin (11-264) ng/mL AST 38 H (14-36) U/L Alkaline Phosphatase 175 H (38-126) U/L Total Protein 5.5 L (6.3-8.2) g/dL Albumin 2.7 L (3.5-5.0) g/dL Carcinoembryonic Ag 26.6 H (0.0-5.0) ng/mL CA 125 Antigen 1820.0 H (<35.1) U/mL 04/18/17 04/18/17 Range/Units 05:24 05:24 RBC (3.80-5.40) m/uL Hgb (11.4-16.0) gm/dL MCV (80.0-100.0) fL RDW (11.5-15.5) % Plt Count (150-450) k/uL Lymphocytes # (1.0-4.8) k/uL PT 13.8 H (9.0-12.0) sec INR 1.4 H (<1.2) Sodium (137-145) mmol/L Chloride (98-107) mmol/L Carbon Dioxide (22-30) mmol/L BUN (7-17) mg/dL Creatinine (0.52-1.04) mg/dL Calcium (8.4-10.2) mg/dL Magnesium (1.6-2.3) mg/dL TIBC 207 L (265-497) ug/dL Ferritin 1070 H (11-264) ng/mL AST (14-36) U/L Alkaline Phosphatase (38-126) U/L Total Protein (6.3-8.2) g/dL Albumin (3.5-5.0) g/dL Carcinoembryonic Ag (0.0-5.0) ng/mL CA 125 Antigen (<35.1) U/mL CT scan - abdomen: report reviewed CT scan - pelvis: report reviewed Assessment and Plan (1) Metastatic breast cancer Narrative/Plan: Pt was recently started on faslodex for her rising Ca 15-3, she has only had 1st of 2 loading doses, she is due for second set of injections this week. We will plan for injections once pt discharged. No other interventions at this time Currently I am unable to locate cytology on recent thoracentesis, did request cytology on paracentesis. Status: Acute
[2017-04-18 18:45] LABS: Glucose, BF Source Ascites; LDH, Body Fluid Source Ascites; T. Protein, Body Fluid Source Ascites; Total Protein, Body Fluid 2900 mg/dL
[2017-04-18] MEDS: SODIUM CHLORIDE 0.9% 1,000 ML IV SCH (21:50)
[2017-04-18] MEDS: ATORVASTATIN 20 MG TAB PO SCH (22:16)
--- NOTE | 2017-04-19 07:23 | P.GSCN ---
History of Present Illness Consult date: 04/18/17 Reason for Consult: Bilateral hydronephrosis History of present illness: The patient is an 86-year-old female admitted through the emergency room for evaluation of abdominal pain and distention. Patient said that she had been experiencing progressive abdominal bloating for the last 3 weeks. She initially thought she had been constipated and took some mag citrate last week but had only minimal bowel movement. She began experiencing some nausea and vomiting 3 days prior to coming to the emergency room. In the emergency room she was noted have abdominal distention and a computed tomography scan of the abdomen and pelvis showed moderately severe ascites, bilateral pleural effusions and mild to moderate bilateral hydronephrosis. The when/creatinine at the time of admission were 33/1.69. The when/creatinine today essentially unchanged at 31/1.6. The patient was noted to have a CTA 125/1820 and a CEA of 26.6. She underwent diagnostic/therapeutic paracentesis earlier today and says that for liters of fluid were drained. The patient says her abdominal pain has improved. The patient has a history of breast cancer which was diagnosed in the right side in 1999 and on the left side in 2002. She says that she was diagnosed with bone metastasis 1-1/2-2 years ago and had originally been treated with Aromasin. She says that her treatment was changed by Dr. Thoren one month ago but she could not recall the medication that she is currently receiving. She has no history of gross hematuria. She is currently voiding every 3-4 hours during the day and once at night. She denies any significant back pain. Review of Systems - Constitutional Reports anorexia, Reports fatigue, Reports poor appetite, Denies chills, Denies fever, Denies weight gain - Cardiovascular Reports decreased exercise tolerance, Reports shortness of breath, Denies edema - Respiratory Denies cough - Gastrointestinal Reports as per HPI, Reports diarrhea, Reports early satiety, Reports loss of appetite, Reports vomiting - Genitourinary Genitourinary: Reports as per HPI Past Medical History Past Medical History: Atrial Fibrillation, Cancer, GERD/Reflux, Hyperlipidemia, Hypertension, Osteoarthritis (OA), Pneumonia Additional Past Medical History / Comment(s): bone cancer, SINUS, HEMORRHOIDS, PNE X5, MULTIPLE BASAL CELL SKIN CANCER LESIONS REMOVED."DOUBLE VISION SINCE CATARACT SX", STRESS INCONT OF URINE.past fx lt wrist. History of Any Multi-Drug Resistant Organisms: None Reported Past Surgical History: Breast Surgery, Cardiac Ablation, Cholecystectomy, Heart Catheterization, Orthopedic Surgery, Tubal Ligation Additional Past Surgical History / Comment(s): RT knee arthroscopy., bilateral mastectomy, skin ca removed, d&c, lt wrist sx d/t fx-stated no metal in palce Past Anesthesia/Blood Transfusion Reactions: No Reported Reaction Type of Cardiac Device: Permanent Pacemaker Device Placement Date:: unknown Past Psychological History: No Psychological Hx Reported Smoking Status: Former smoker - Past Family History Mother Family Medical History: Diabetes Mellitus, Myocardial Infarction ([place]) Father Family Medical History: AFIB, Cancer, Prostate Disorder Additional Family Medical History / Comment(s): prostate cancer Medications and Allergies Home Medications Medication Instructions Recorded Confirmed Type Atorvastatin [Lipitor] 20 mg PO HS 03/08/14 04/17/17 History Esomeprazole Magnesium [NexIUM] 40 mg PO DAILY@1200 03/08/14 04/17/17 History Metoprolol Tartrate [Lopressor] 100 mg PO BID 03/08/14 04/17/17 History Calcium Carbonate [Calcium] 600 mg PO BID 03/11/17 04/17/17 History LORazepam [Ativan] 0.5 mg PO DAILY PRN 03/11/17 04/17/17 History Xgeva Injection 120 mg SQ Q30D 03/11/17 04/17/17 History Lisinopril [Zestril] 10 mg PO DAILY 04/17/17 04/17/17 History Allergies Allergy/AdvReac Type Severity Reaction Status Date / Time codeine AdvReac Nausea & Verified 04/17/17 17:29 Vomiting Surgical - Exam Vital Signs Temp Pulse Resp BP Pulse Ox 97.2 F L 64 18 121/63 97 04/17/17 15:51 04/17/17 15:51 04/17/17 15:51 04/17/17 15:51 04/17/17 15:51 - General well developed, well nourished, no distress - Neck no masses, no lymphadectomy - Respiratory normal expansion, normal respiratory effort - Abdomen Abdomen: soft, no organomegaly - Psychiatric oriented to time, oriented to person, memory intact Results - Labs 04/18/17 05:24 04/18/17 05:24 Abnormal Lab Results - Last 24 Hours (Table) 04/17/17 04/17/17 04/17/17 Range/Units 17:28 17:28 17:28 RBC 3.53 L (3.80-5.40) m/uL Hgb (11.4-16.0) gm/dL MCV 100.4 H (80.0-100.0) fL RDW 17.1 H (11.5-15.5) % Plt Count 138 L (150-450) k/uL Lymphocytes # (1.0-4.8) k/uL PT 13.4 H (9.0-12.0) sec INR 1.4 H (<1.2) Sodium 135 L (137-145) mmol/L Potassium 5.9 H (3.5-5.1) mmol/L Chloride (98-107) mmol/L Carbon Dioxide 19 L (22-30) mmol/L BUN 33 H (7-17) mg/dL Creatinine 1.69 H (0.52-1.04) mg/dL Calcium (8.4-10.2) mg/dL Magnesium (1.6-2.3) mg/dL TIBC (265-497) ug/dL Ferritin (11-264) ng/mL AST 51 H (14-36) U/L Alkaline Phosphatase 184 H (38-126) U/L Total Protein (6.3-8.2) g/dL Albumin 3.1 L (3.5-5.0) g/dL Carcinoembryonic Ag (0.0-5.0) ng/mL CA 125 Antigen (<35.1) U/mL 04/18/17 04/18/17 04/18/17 Range/Units 05:24 05:24 05:24 RBC 3.46 L (3.80-5.40) m/uL Hgb 11.3 L (11.4-16.0) gm/dL MCV 103.3 H (80.0-100.0) fL RDW 17.3 H (11.5-15.5) % Plt Count 113 L (150-450) k/uL Lymphocytes # 0.9 L (1.0-4.8) k/uL PT 13.8 H (9.0-12.0) sec INR 1.4 H (<1.2) Sodium 136 L (137-145) mmol/L Potassium (3.5-5.1) mmol/L Chloride 109 H (98-107) mmol/L Carbon Dioxide 20 L (22-30) mmol/L BUN 31 H (7-17) mg/dL Creatinine 1.60 H (0.52-1.04) mg/dL Calcium 8.2 L (8.4-10.2) mg/dL Magnesium 2.4 H (1.6-2.3) mg/dL TIBC (265-497) ug/dL Ferritin (11-264) ng/mL AST 38 H (14-36) U/L Alkaline Phosphatase 175 H (38-126) U/L Total Protein 5.5 L (6.3-8.2) g/dL Albumin 2.7 L (3.5-5.0) g/dL Carcinoembryonic Ag 26.6 H (0.0-5.0) ng/mL CA 125 Antigen 1820.0 H (<35.1) U/mL 04/18/17 Range/Units 05:24 RBC (3.80-5.40) m/uL Hgb (11.4-16.0) gm/dL MCV (80.0-100.0) fL RDW (11.5-15.5) % Plt Count (150-450) k/uL Lymphocytes # (1.0-4.8) k/uL PT (9.0-12.0) sec INR (<1.2) Sodium (137-145) mmol/L Potassium (3.5-5.1) mmol/L Chloride (98-107) mmol/L Carbon Dioxide (22-30) mmol/L BUN (7-17) mg/dL Creatinine (0.52-1.04) mg/dL Calcium (8.4-10.2) mg/dL Magnesium (1.6-2.3) mg/dL TIBC 207 L (265-497) ug/dL Ferritin 1070 H (11-264) ng/mL AST (14-36) U/L Alkaline Phosphatase (38-126) U/L Total Protein (6.3-8.2) g/dL Albumin (3.5-5.0) g/dL Carcinoembryonic Ag (0.0-5.0) ng/mL CA 125 Antigen (<35.1) U/mL Diabetes panel 04/17/17 04/18/17 Range/Units 17:28 05:24 Sodium 135 L 136 L (137-145) mmol/L Potassium 5.9 H 5.1 (3.5-5.1) mmol/L Chloride 107 109 H (98-107) mmol/L Carbon Dioxide 19 L 20 L (22-30) mmol/L BUN 33 H 31 H (7-17) mg/dL Creatinine 1.69 H 1.60 H (0.52-1.04) mg/dL Glucose 99 82 (74-99) mg/dL Calcium 8.4 8.2 L (8.4-10.2) mg/dL AST 51 H 38 H (14-36) U/L ALT 48 46 (9-52) U/L Alkaline Phosphatase 184 H 175 H (38-126) U/L Total Protein 6.4 5.5 L (6.3-8.2) g/dL Albumin 3.1 L 2.7 L (3.5-5.0) g/dL Calcium panel 04/17/17 04/18/17 Range/Units 17:28 05:24 Calcium 8.4 8.2 L (8.4-10.2) mg/dL Phosphorus 3.6 (2.5-4.5) mg/dL Albumin 3.1 L 2.7 L (3.5-5.0) g/dL Pituitary panel 04/17/17 04/18/17 Range/Units 17:28 05:24 Sodium 135 L 136 L (137-145) mmol/L Potassium 5.9 H 5.1 (3.5-5.1) mmol/L Chloride 107 109 H (98-107) mmol/L Carbon Dioxide 19 L 20 L (22-30) mmol/L BUN 33 H 31 H (7-17) mg/dL Creatinine 1.69 H 1.60 H (0.52-1.04) mg/dL Glucose 99 82 (74-99) mg/dL Calcium 8.4 8.2 L (8.4-10.2) mg/dL Adrenal panel 04/17/17 04/18/17 Range/Units 17:28 05:24 Sodium 135 L 136 L (137-145) mmol/L Potassium 5.9 H 5.1 (3.5-5.1) mmol/L Chloride 107 109 H (98-107) mmol/L Carbon Dioxide 19 L 20 L (22-30) mmol/L BUN 33 H 31 H (7-17) mg/dL Creatinine 1.69 H 1.60 H (0.52-1.04) mg/dL Glucose 99 82 (74-99) mg/dL Calcium 8.4 8.2 L (8.4-10.2) mg/dL Total Bilirubin 1.1 0.8 (0.2-1.3) mg/dL AST 51 H 38 H (14-36) U/L ALT 48 46 (9-52) U/L Alkaline Phosphatase 184 H 175 H (38-126) U/L Total Protein 6.4 5.5 L (6.3-8.2) g/dL Albumin 3.1 L 2.7 L (3.5-5.0) g/dL - Imaging CT scan - abdomen: image reviewed (Bilateral pyelocaliectasis which is unchanged from a computed tomography scan dated 02/14/2017. Moderate pyelocaliectasis was noted on a computed tomography scan in 08/2016 and mild bilateral pelvocaliectasis was noted on a computed tomography scan in 03/11. The most to recent CT scans show moderately severe ascites as well as bilateral pleural effusions.) Assessment and Plan (1) Hydronephrosis, bilateral Narrative/Plan: I personally reviewed the patient's computed tomography scan obtained on 04/17 and compared it with CT scans from 01/2017, 08/2016 and 02/2016. The patient has bilateral pyelocaliectasis which has been present previously and has progressed somewhat since the original computed tomography scan in 03/11. There does not appear to be any significant change in this from the computed tomography scan done in 09/10. 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 The patient' s renal function has declined somewhat since earlier this year however a portion of this could be related to her ascites. She did have ascites present on her computed tomography scan in 01/2017 however it was not as severe. Status: Acute Plan: I told the patient and her son that at this time I do not feel that emergent placement of double-J catheters is necessary. Her renal function at the present time is not significantly impaired. If her renal function improves following paracentesis then further observation would be reasonable. The patient appears to have recurrent breast cancer and this may be the cause of her ascites, however other causes cannot be excluded..
[2017-04-19 08:08] LABS: Anisocytosis Slight; Basophils # (A) 0.1 k/uL (0-0.2); Basophils % (A) 1 %; CH 31.8; CHCM 31.2; Eosinophils # (A) 0.2 k/uL (0-0.7); Eosinophils % (A) 3 %; HCT 37.4 % (34.0-46.0); HGB 11.9 gm/dL (11.4-16.0); Hypochromasia Slight; Luc # (Auto) 0.08; Luc % (Auto) 1; Lymphocytes % (A) 13 %; MCH 32.7 pg (25.0-35.0); MCHC 31.7 g/dL (31.0-37.0); Macrocytosis Moderate; Mean Platelet Volume 8.2; Monocytes # (A) 0.5 k/uL (0-1.0); Monocytes % (A) 7 %; Neutrophils # (A) 5.6 k/uL (1.3-7.7); Neutrophils % (A) 76 %; RBC 3.63 m/uL (3.80-5.40); RDW 16.4 % (11.5-15.5); WBC 7.5 k/uL (3.8-10.6); WBC (Perox) 7.85
[2017-04-19 08:11] LABS: INR 1.6 (<1.2); Prothrombin Time 15.3 sec (9.0-12.0)
[2017-04-19 08:24] LABS: Calcium 7.4 mg/dL (8.4-10.2); Potassium 5.1 mmol/L (3.5-5.1); Total Protein 5.1 g/dL (6.3-8.2)
[2017-04-19 08:26] VITALS: BP 109/52; PULSE 63; RESP 18; TEMP 98.1
[2017-04-19] MEDS: SPIRONOLACTONE 25 MG TAB PO SCH (08:36)
[2017-04-19] MEDS: METOPROLOL TARTRATE 50 MG TAB PO SCH (08:36)
[2017-04-19] MEDS: LISINOPRIL 5 MG TAB PO SCH (08:36)
[2017-04-19] MEDS: FUROSEMIDE 40 MG TAB PO SCH (08:36)
--- NOTE | 2017-04-19 10:35 | P.PN ---
Subjective Principal diagnosis: Ascites 86-year-old female with history of breast carcinoma with bone metastasis presents with new onset of ascites status post therapeutic diagnostic paracentesis yesterday. Ascitic cytology pending. Additional serologic workup for chronic liver disease evaluation pending. Feels better this morning. Afebrile. CA 125 elevated 1820. CEA 26.6. Hepatitis panel negative. Total bilirubin 1.0. Objective - Vital Signs Vital signs: Vital Signs Temp 98.1 F 04/19/17 07:00 Pulse 63 04/19/17 07:00 Resp 18 04/19/17 07:00 BP 109/52 04/19/17 07:00 Pulse Ox 91 L 04/19/17 07:00 Intake & Output 04/18/17 04/19/17 04/19/17 18:59 06:59 18:59 Intake Total 160 850 Balance 160 850 Weight 63.503 kg Intake: Intake, IV Titration 160 160 Amount Sodium Chloride 0.9% 1, 160 160 000 ml @ 20 mls/hr IV . Q24H [facility] Rx#:[id number] Oral 690 Other: Voiding Method Toilet Toilet Toilet # Voids 2 1 - Exam General appearance: The patient is alert, oriented, in no acute distress. HET: Head is normocephalic and atraumatic. Pupils are equal and reactive. Oropharynx is clear without lesions. Neck: Supple without lymphadenopathy. Trachea midline. Heart: S1 S2. Regular rate and rhythm. Lungs: No crackles or wheezes are heard. Abdomen: Soft, nontender, nondistended with bowel sounds. No peritoneal signs. No palpable organomegaly or masses. Extremities: Normal skin color and turgor. No cyanosis, rash, ulceration, clubbing, or edema. Radial and pedal pulses are 2/4 bilaterally. Neurological: No focal deficits. Strength and sensation are grossly intact. - Labs CBC & Chem 7: 04/19/17 07:50 04/19/17 07:50 Labs: Abnormal Lab Results - Last 24 Hours (Table) 04/18/17 04/19/17 04/19/17 Range/Units 05:24 07:50 07:50 RBC 3.63 L (3.80-5.40) m/uL MCV 103.0 H (80.0-100.0) fL RDW 16.4 H (11.5-15.5) % Plt Count 122 L (150-450) k/uL PT 15.3 H (9.0-12.0) sec INR 1.6 H (<1.2) Sodium (137-145) mmol/L Chloride (98-107) mmol/L Carbon Dioxide (22-30) mmol/L BUN (7-17) mg/dL Creatinine (0.52-1.04) mg/dL Calcium (8.4-10.2) mg/dL TIBC 207 L (265-497) ug/dL Ferritin 1070 H (11-264) ng/mL AST (14-36) U/L Alkaline Phosphatase (38-126) U/L Total Protein (6.3-8.2) g/dL Albumin (3.5-5.0) g/dL 04/19/17 Range/Units 07:50 RBC (3.80-5.40) m/uL MCV (80.0-100.0) fL RDW (11.5-15.5) % Plt Count (150-450) k/uL PT (9.0-12.0) sec INR (<1.2) Sodium 136 L (137-145) mmol/L Chloride 108 H (98-107) mmol/L Carbon Dioxide 19 L (22-30) mmol/L BUN 36 H (7-17) mg/dL Creatinine 2.16 H (0.52-1.04) mg/dL Calcium 7.4 L (8.4-10.2) mg/dL TIBC (265-497) ug/dL Ferritin (11-264) ng/mL AST 37 H (14-36) U/L Alkaline Phosphatase 157 H (38-126) U/L Total Protein 5.1 L (6.3-8.2) g/dL Albumin 2.5 L (3.5-5.0) g/dL Microbiology - Last 24 Hours (Table) 04/18/17 13:25 Gram Stain - Preliminary Ascites Fluid Body Fluid Culture - Preliminary 04/18/17 13:25 Anaerobic Culture - Preliminary Ascites Fluid Assessment and Plan (1) Ascites Narrative/Plan: Etiology unclear workup for chronic autoimmune liver disease in progress status post therapeutic diagnostic paracentesis with cytology pending. Status: Acute (2) Elevated CA-125 Status: Acute (3) Elevated CEA Status: Acute Plan: 1. Await cytology serologic results. Supportive measures. Recommend [employer]Y TECHNICIAN evaluation for elevated CA 125. Assessment and plan a care discussed with Dr. Ruby
--- NOTE | 2017-04-19 14:56 | P.DS ---
Providers Date of admission: 04/17/17 20:05 Expected date of discharge: 04/19/17 Attending physician: Shaniqua Alegria Consults: 04/17/17 20:07 Consult Physician Routine Consulting Provider: Misty Ruby Consult Reason/Comments: Ascites Do you want consulting provider notified?: Yes 04/17/17 20:08 Consult Physician Routine Consulting Provider: Escobar Thorne Consult Reason/Comments: Bone cancer Do you want consulting provider notified?: Yes 04/18/17 14:18 Consult Physician Routine Consulting Provider: Raimundo Lowery Consult Reason/Comments: bilateral hydronephrosis Do you want consulting provider notified?: Yes Primary care physician: [facility] Course: Pleasant 86-year-old lady patient of Dr. Bowie for which he established with the practice 2 weeks ago, has underlying history of breast cancer with metastases to the bone approximately 1-1/2 years ago with bilateral mastectomy right 1999 and left 2002, under the care of Dr. Thorne, Dr. TRISHA Davies for atrial fibrillation, GERD hyperlipidemia osteoarhtritis and a permanent pacemaker for atrial fibrillation. Was seen and currently is on intramuscular shots that was started 2 weeks ago. She was admitted from our facility 03/11/2017 secondary to pleural effusion aortic IV diuresis and was discharged on oral Lasix. At that time CAT scan of the abdomen and pelvis also shows the ascites and metastatic lesions to the bone, patient was not aware off this condition. She now complains of abdominal distention along with constipation, patient did not have relief with any [id number] medication, the ascites continues to bother her requiring now ER evaluation. ct of the abdomen and pelvis were reviewed from [email or web address] showed ascites being present, bilateral Valeria thickening, small bilateral pleural effusion are present, multipl all shoes abnormalities noted, there is right mild hydronephrosis noted, worse on the left side suggestive of partial obstruction, that similar to old exam extensive atherosclerotic vascular disease 04/19: Patient underwent ultrasound-guided paracentesis with removal of 4.5 L of serous fluid sent for testing. Patient has been seen by Dr. Ruby. Patient was also seen by oncology. Patient is due for her second loading dose of Faslodex for her rising CA 15-3. AFP is 3.5, CEA 26.6, CEA 125 1820. Liver function tests are improving today. Hepatitis B and C negative. Patient has been evaluated by Dr. Lowery for bilateral hydronephrosis with no plan for emergent placement of double-J catheters. Patient is agreeable to be discharged home today. Aldactone was added and Lasix once daily, potassium discontinued and lisinopril decreased to 5 mg daily due to hypotension. Patient will be discharged home today in stable condition. Discharge diagnoses: 1 symtpomatic ascites most related to malignancy, she has coexisting breast cancer 2. Large pleural effusion most likely secondary to malignancy, patient currently is asymptomatic 3. Breast cancer with metastatic to the bone 4. Paroxysmal atrial fibrillation not on any anticoagulation, status post pacemaker 5. Bilateral hydronephrosis 6 Liver cirrhosis, cytology is pending 7 Hyperlipidemia 8 Atherosclerotic cardiovascular disease asymtpomatic 9 Moderate protein calorie malnutrition 10 CKD stage III 11 Cachexia with weight loss related to malignancy 12 Previous tobacco use 13 COPD without any exacerbation Discharge plan: Return home Impression and plan of care have been directed as dictated by the signing physician. Carol Garvin nurse practitioner acting as scribe for signing physician. Patient Condition at Discharge: Good Plan - Discharge Summary New Discharge Prescriptions: New Furosemide [Lasix] 40 mg PO DAILY #30 tab Lisinopril [Zestril] 5 mg PO DAILY #30 tab Mirtazapine [Remeron] 7.5 mg PO 1800 #15 tab Spironolactone [Aldactone] 25 mg PO DAILY #30 tab Continue Esomeprazole Magnesium [NexIUM] 40 mg PO DAILY@1200 Atorvastatin [Lipitor] 20 mg PO HS Metoprolol Tartrate [Lopressor] 100 mg PO BID Calcium Carbonate [Calcium] 600 mg PO BID Xgeva Injection 120 mg SQ Q30D LORazepam [Ativan] 0.5 mg PO DAILY PRN PRN Reason: Anxiety Discontinued Potassium Chloride ER [K-Dur 20] 20 meq PO DAILY #30 tab Lisinopril [Zestril] 10 mg PO DAILY Discharge Medication List Atorvastatin [Lipitor] 20 mg PO HS 03/08/14 [History] Esomeprazole Magnesium [NexIUM] 40 mg PO DAILY@1200 03/08/14 [History] Metoprolol Tartrate [Lopressor] 100 mg PO BID 03/08/14 [History] Calcium Carbonate [Calcium] 600 mg PO BID 03/11/17 [History] LORazepam [Ativan] 0.5 mg PO DAILY PRN 03/11/17 [History] Xgeva Injection 120 mg SQ Q30D 03/11/17 [History] Furosemide [Lasix] 40 mg PO DAILY #30 tab 04/19/17 [Rx] Lisinopril [Zestril] 5 mg PO DAILY #30 tab 04/19/17 [Rx] Mirtazapine [Remeron] 7.5 mg PO 1800 #15 tab 04/19/17 [Rx] Spironolactone [Aldactone] 25 mg PO DAILY #30 tab 04/19/17 [Rx] Follow up Appointment(s)/Referral(s): Joaquim Alonso MD [Primary Care Provider] - 04/26/17 1:00 am Raimundo Lowery MD [STAFF PHYSICIAN] - 05/12/17 8:40 am Escobar Thorne MD [STAFF PHYSICIAN] - 05/03/17 2:30 pm Patient Instructions/Handouts: Spironolactone (By mouth), Lisinopril (By mouth) , Furosemide (By mouth), Mirtazapine (By mouth), Ascites (DC) Activity/Diet/Wound Care/Special Instructions: Chest x-ray in 2 weeks Diet as tolerated Activity as tolerated Discharge Disposition: HOME SELF-CARE
[2017-04-19] MEDS ORDERED: ENOXAPARIN 30 MG/0.3 ML SYRINGE SQ SCH (18:00)
== END 2017-04-19 15:15 | disposition home or self-care (01) | DRG 598 ==
LOC: EC 15:38 → 5MS5E 20:05 → 5ONC 04-18 11:15
PROVIDERS: ADMIT Family Medicine; ATTEND Family Medicine
PROC: 0W9G3ZX Drainage of Peritoneal Cavity, Percutaneous Approach, Diagnostic (ICD-10-PCS; principal; 2017-04-18)
DX: C50.912 Malignant neoplasm of unspecified site of left female breast (principal); R18.0 Malignant ascites; N17.9 Acute kidney failure, unspecified; C79.51 Secondary malignant neoplasm of bone; C78.2 Secondary malignant neoplasm of pleura; E44.0 Moderate protein-calorie malnutrition; R64 Cachexia; I48.0 Paroxysmal atrial fibrillation; K74.60 Unspecified cirrhosis of liver; N13.30 Unspecified hydronephrosis; E87.1 Hypo-osmolality and hyponatremia; J44.9 Chronic obstructive pulmonary disease, unspecified; E87.5 Hyperkalemia; N18.3 Chronic kidney disease, stage 3 (moderate); C50.911 Malignant neoplasm of unspecified site of right female breast; F41.9 Anxiety disorder, unspecified; Z66 Do not resuscitate; H26.9 Unspecified cataract; M54.9 Dorsalgia, unspecified; M19.91 Primary osteoarthritis, unspecified site; K21.9 Gastro-esophageal reflux disease without esophagitis; E78.5 Hyperlipidemia, unspecified; I25.10 Atherosclerotic heart disease of native coronary artery without angina pectoris; I12.9 Hypertensive chronic kidney disease with stage 1 through stage 4 chronic kidney disease, or unspecified chronic kidney disease; K59.00 Constipation, unspecified; Z79.811 Long term (current) use of aromatase inhibitors; Z79.899 Other long term (current) drug therapy; Z85.828 Personal history of other malignant neoplasm of skin; Z90.49 Acquired absence of other specified parts of digestive tract; E78.00 Pure hypercholesterolemia, unspecified; Z87.891 Personal history of nicotine dependence; Z87.01 Personal history of pneumonia (recurrent); Z95.0 Presence of cardiac pacemaker; Z90.13 Acquired absence of bilateral breasts and nipples; Z88.5 Allergy status to narcotic agent
CPT/HCPCS: 36415; 49083; 71020; 74176; 80053; 82103; 82105; 82378; 82728; 82945; 83540; 83550; 83605; 83615; 83690; 83735; 83880; 84100; 84157; 84484; 85025; 85610; 85730; 86038; 86304; 86803; 87070; 87075; 87205; 87340; 88108; 88305; 88341; 88342; 89050; 93005; 96361; 96374; 99285